=== PATIENT | female | born 1940 | race Caucasian/White ===

== ENCOUNTER → 2016-10-09 | Outpatient (CLI) | payer MEDICARE, BC ==
[~2016-10-09] MED LIST: ACET-1757 PO; ALPR0.25 PO; AMLO5TAB4 PO; AMOX1TAB64 PO; ASPI-515 PO; ATOR20TA9 PO; BISA10SU54 PR; CEFD300C2 PO; CIPR500T3 PO; CLOP75TA22 PO; ENOX40SY4 SQ; FURO-93 PO; FURO40TA6 PO; GABA300C10 PO; GABA600T2 PO; HYDR25TA6 PO; INSU100C5 SQ-INSULIN; INSU100I28 SC; INSU100V13 SC; LEVO25TA4 PO; LOSA100T6 PO; LOSA50TA6 PO; METF10002 PO; METO75TA PO; METR500T PO; NORT25CA PO; OMEP-110 PO; OMEP1CAP14 PO; ONDA4TAB10 PO; OXYC-302 PO; PRED10TA PO; SIMV10TA3 PO; SIMV20TA3 PO; SIMV40TA3 PO; VIT D
== END | disposition home or self-care (01) ==
LOC: CVU 08:54
PROVIDERS: ATTEND Internal Medicine Cardiovascular Disease
DX: I08.3 Combined rheumatic disorders of mitral, aortic and tricuspid valves (principal); I65.23 Occlusion and stenosis of bilateral carotid arteries; I31.3 Pericardial effusion (noninflammatory); I10 Essential (primary) hypertension; E11.9 Type 2 diabetes mellitus without complications; E03.9 Hypothyroidism, unspecified; E78.5 Hyperlipidemia, unspecified; Z95.0 Presence of cardiac pacemaker; Z86.73 Personal history of transient ischemic attack (TIA), and cerebral infarction without residual deficits
CPT/HCPCS: 93306; 93880

== ENCOUNTER 2016-11-13 13:30 | Inpatient (IN) | payer MEDICARE, BC ==
[~2016-11-13] VITALS: Ht 167.6 cm; Wt 97.3 kg
[~2016-11-13 13:30] MED LIST changes: -CEFD300C2 PO; +CEFD300C37 PO
[2016-11-13] MEDS ORDERED: SODIUM CHLORIDE FLUSH 10ML SYR IVF ONE (14:30)
[2016-11-13 14:56] LABS: ASPARTATE AMINO TRANSFERASE 40 U/L (15-37); BLOOD UREA NITROGEN 18 mg/dL (7-18)
[2016-11-13 15:02] LABS: IS PT STATUS REG ER OR PRE ER? YES
[2016-11-13] MEDS ORDERED: SODIUM CHLORIDE 0.9%, 500ML IVBOLUS ONE (15:30)
[2016-11-13] MEDS ORDERED: ONDANSETRON 2MG/ML, 2ML IVPush ONE (15:30)
[2016-11-13] MEDS ORDERED: morphine SULFATE 10 MG/ML, 1ML IVPush ONE (15:30)
[2016-11-13] MEDS ORDERED: OMNIPAQUE 350 MG/ML, 100ML BOTTLE ONE (18:18)
[2016-11-13] MEDS ORDERED: INSU100V13 INJ (18:37)
[2016-11-13] MEDS ORDERED: POLYETHYLENE GLYCOL 17 GM PACKET PO PRN (19:30)
[2016-11-13] MEDS ORDERED: ACETAMINOPHEN 325 MG TABLET PO PRN (19:30)
[2016-11-13] MEDS ORDERED: BISACODYL 10 MG SUPP PR PRN (19:30)
[2016-11-13] MEDS ORDERED: ONDANSETRON ODT 4 MG PO PRN (19:30)
[2016-11-13] MEDS ORDERED: CEFTRIAXONE 1,000 MG in SODIUM CHLORIDE 0.9% 50 ML IV SCH (19:30)
[2016-11-13 20:23] VITALS: BP 132/77
[2016-11-13] MEDS ORDERED: FUROSEMIDE 40 MG/4 ML IV ONE (20:30)
[2016-11-13] MEDS: SODIUM CHLORIDE FLUSH 3ML SYRINGE IVF SCH (21:00)
[2016-11-13] MEDS: CEFTRIAXONE 1,000 MG in SODIUM CHLORIDE 0.9% 50 ML IV SCH (21:24)
[2016-11-13] MEDS: HEPARIN 5,000 UNITS/ML, 1ML SQ SCH (21:25)
[2016-11-13] MEDS: GABAPENTIN 300 MG CAPSULE PO SCH (21:25)
[2016-11-13] MEDS: ATORVASTATIN 20 MG TABLET PO SCH (21:26)
[2016-11-13 21:42] VITALS: BP 136/77
[2016-11-13 21:50] LABS: IS PT STATUS REG ER OR PRE ER? NO
[2016-11-13] MEDS: INSULIN DETEMIR 100 UNITS/ML, PEN SQ-INSULIN SCH (22:04)
[2016-11-14 01:28] VITALS: BP 103/68
[2016-11-14 03:42] LABS: ASPARTATE AMINO TRANSFERASE 31 U/L (15-37); BLOOD UREA NITROGEN 16 mg/dL (7-18)
[2016-11-14 04:30] LABS: IS PT STATUS REG ER OR PRE ER? NO
[2016-11-14] MEDS: HEPARIN 5,000 UNITS/ML, 1ML SQ SCH ×3 (06:20→20:18)
[2016-11-14] MEDS: LEVOTHYROXINE 25 MCG TABLET PO SCH (06:20)
[2016-11-14 08:05] VITALS: BP 137/88
[2016-11-14] MEDS: SENNA/DOCUSATE TABLET PO SCH (09:00)
[2016-11-14] MEDS: CLOPIDOGREL 75 MG TABLET PO SCH (09:06)
[2016-11-14] MEDS: GABAPENTIN 300 MG CAPSULE PO SCH ×2 (09:06→20:20)
[2016-11-14] MEDS: SODIUM CHLORIDE FLUSH 3ML SYRINGE IVF SCH ×2 (09:06→20:18)
[2016-11-14] MEDS: POTASSIUM CHLORIDE 20 MEQ TAB.ER.PRT PO SCH ×2 (09:06→17:18)
[2016-11-14] MEDS: FUROSEMIDE 20 MG/2 ML IV SCH ×2 (09:06→17:18)
[2016-11-14] MEDS: GUAIFENESIN/DM 200-20MG, 10ML UDC PO PRN ×2 (11:49→20:19)
[2016-11-14 12:56] VITALS: BP 125/84
[2016-11-14] MEDS ORDERED: MAGNESIUM SULFATE PMX 4GM/100M 100 ML IV ONE (14:00)
[2016-11-14 20:16] VITALS: BP 106/72
[2016-11-14] MEDS: CEFTRIAXONE 1,000 MG in SODIUM CHLORIDE 0.9% 50 ML IV SCH (20:18)
[2016-11-14] MEDS: ATORVASTATIN 20 MG TABLET PO SCH (20:20)
[2016-11-14] MEDS: INSULIN DETEMIR 100 UNITS/ML, PEN SQ-INSULIN SCH (22:16)
[2016-11-15 02:37] VITALS: BP 131/77
[2016-11-15] MEDS: LEVOTHYROXINE 25 MCG TABLET PO SCH (05:13)
[2016-11-15] MEDS: HEPARIN 5,000 UNITS/ML, 1ML SQ SCH ×2 (05:13→16:21)
[2016-11-15 06:03] LABS: BLOOD UREA NITROGEN 22 mg/dL (7-18)
[2016-11-15 08:01] VITALS: BP 125/79
[2016-11-15] MEDS: SENNA/DOCUSATE TABLET PO SCH (08:04)
[2016-11-15] MEDS: GABAPENTIN 300 MG CAPSULE PO SCH ×2 (08:10→20:30)
[2016-11-15] MEDS: CLOPIDOGREL 75 MG TABLET PO SCH (08:10)
[2016-11-15] MEDS: SODIUM CHLORIDE FLUSH 3ML SYRINGE IVF SCH ×2 (08:10→20:29)
[2016-11-15] MEDS: FUROSEMIDE 20 MG/2 ML IV SCH (08:11)
[2016-11-15] MEDS: FUROSEMIDE 40 MG TABLET PO SCH (11:08)
[2016-11-15] MEDS: BENZONATATE 100 MG CAPSULE PO SCH ×3 (11:08→20:30)
[2016-11-15 13:15] VITALS: BP 126/75
[2016-11-15] MEDS: GUAIFENESIN ER 600 MG TABLET PO SCH ×2 (16:21→20:29)
[2016-11-15 19:05] VITALS: BP 139/85
[2016-11-15] MEDS: CEFDINIR 300 MG CAPSULE PO SCH (20:30)
[2016-11-15] MEDS: ATORVASTATIN 20 MG TABLET PO SCH (20:30)
[2016-11-15] MEDS: INSULIN DETEMIR 100 UNITS/ML, PEN SQ-INSULIN SCH (20:31)
[2016-11-16] MEDS: HEPARIN 5,000 UNITS/ML, 1ML SQ SCH ×2 (00:54→09:35)
[2016-11-16 00:56] VITALS: BP 104/65
[2016-11-16] MEDS: LEVOTHYROXINE 25 MCG TABLET PO SCH (06:26)
[2016-11-16 06:31] LABS: BLOOD UREA NITROGEN 21 mg/dL (7-18)
[2016-11-16 06:39] VITALS: BP 113/69
[2016-11-16] MEDS ORDERED: FUROSEMIDE 40 MG TABLET PO SCH (09:00)
[2016-11-16] MEDS: FUROSEMIDE 40 MG TABLET PO SCH (09:00)
[2016-11-16] MEDS: BENZONATATE 100 MG CAPSULE PO SCH (09:34)
[2016-11-16] MEDS: GUAIFENESIN ER 600 MG TABLET PO SCH (09:34)
[2016-11-16] MEDS: SENNA/DOCUSATE TABLET PO SCH (09:34)
[2016-11-16] MEDS: SODIUM CHLORIDE FLUSH 3ML SYRINGE IVF SCH (09:35)
[2016-11-16] MEDS: GABAPENTIN 300 MG CAPSULE PO SCH (09:35)
[2016-11-16] MEDS: CEFDINIR 300 MG CAPSULE PO SCH (09:35)
[2016-11-16] MEDS ORDERED: POTASSIUM CHLORIDE 10 MEQ TABLET.ER PO SCH (10:00)
[2016-11-16] MEDS: CLOPIDOGREL 75 MG TABLET PO SCH (10:39)
[2016-11-16] MEDS ORDERED: CEFD300C37 PO (11:24)
[2016-11-16] MEDS ORDERED: GUAI600T22 PO (11:24)
[2016-11-16] MEDS ORDERED: BENZ100C4 PO (11:24)
[2016-11-16] MEDS ORDERED: FURO40TA6 PO (11:24)
[2016-11-16] MEDS ORDERED: POTA10TA5 PO (11:24)
[2016-11-16 12:59] VITALS: BP 105/65
[2016-11-17] MEDS ORDERED: SENNA/DOCUSATE TABLET PO SCH (09:00)
== END 2016-11-16 18:16 | disposition home health service (06) | DRG 292 ==
LOC: ED 18:27 → EDIP 18:28 → ED 18:41 → 5SO 19:58 → 4WST 11-16 00:24
PROVIDERS: ADMIT Internal Medicine; ATTEND Internal Medicine
DX: I11.0 Hypertensive heart disease with heart failure (principal); I31.3 Pericardial effusion (noninflammatory); N39.0 Urinary tract infection, site not specified; I38 Endocarditis, valve unspecified; I50.33 Acute on chronic diastolic (congestive) heart failure; J40 Bronchitis, not specified as acute or chronic; R00.0 Tachycardia, unspecified; D72.829 Elevated white blood cell count, unspecified; E87.6 Hypokalemia; E11.40 Type 2 diabetes mellitus with diabetic neuropathy, unspecified; E78.5 Hyperlipidemia, unspecified; I27.2 Other secondary pulmonary hypertension; E03.9 Hypothyroidism, unspecified; R53.81 Other malaise; Z99.3 Dependence on wheelchair; Z79.4 Long term (current) use of insulin; Z86.73 Personal history of transient ischemic attack (TIA), and cerebral infarction without residual deficits; Z95.0 Presence of cardiac pacemaker; Z88.2 Allergy status to sulfonamides; Z88.1 Allergy status to other antibiotic agents; E78.00 Pure hypercholesterolemia, unspecified; I25.10 Atherosclerotic heart disease of native coronary artery without angina pectoris; Z83.3 Family history of diabetes mellitus; Z96.653 Presence of artificial knee joint, bilateral; I49.5 Sick sinus syndrome
CPT/HCPCS: 36415; 71010; 71275; 80048; 80053; 81001; 82962; 83036; 83735; 83880; 84484; 85025; 85379; 85610; 87086; 93005; 96360; J0696; J1644; J1940; Q0162; Q9967; J1815; J3475; J7040

== ENCOUNTER 2016-11-26 22:32 | Inpatient (IN) | payer MEDICARE, BC ==
[~2016-11-26] VITALS: Ht 167.6 cm; Wt 94.4 kg
[~2016-11-26 22:32] MED LIST changes: +BENZ100C4 PO; +GUAI600T22 PO; +INSU100V13 INJ; +POTA10TA5 PO
[2016-11-26] MEDS ORDERED: SODIUM CHLORIDE FLUSH 10ML SYR IVF ONE (23:30)
[2016-11-26 23:54] LABS: BLOOD UREA NITROGEN 19 mg/dL (7-18)
[2016-11-26 23:59] LABS: ASPARTATE AMINO TRANSFERASE 24 U/L (15-37)
[2016-11-27 00:01] LABS: IS PT STATUS REG ER OR PRE ER? YES
[2016-11-27] MEDS ORDERED: SODIUM CHLORIDE 0.9%, 500ML IVBOLUS ONE (00:30)
[2016-11-27 04:11] VITALS: BP 100/60
[2016-11-27 07:16] VITALS: BP 118/81
[2016-11-27] MEDS ORDERED: ONDANSETRON 2MG/ML, 2ML IVPush PRN (07:30)
[2016-11-27] MEDS: SODIUM CHLORIDE 0.9% 1,000 ML IV SCH ×2 (08:37→17:13)
[2016-11-27] MEDS: CEFTRIAXONE PMX 2GM/50ML 50 ML IVPB SCH (08:46)
[2016-11-27] MEDS: ENOXAPARIN 40 MG/0.4 ML SQ SCH (08:47)
[2016-11-27] MEDS: LEVOTHYROXINE 25 MCG TABLET PO SCH (08:47)
[2016-11-27] MEDS: CLOPIDOGREL 75 MG TABLET PO SCH (08:48)
[2016-11-27] MEDS: GABAPENTIN 300 MG CAPSULE PO SCH ×2 (08:48→20:43)
[2016-11-27] MEDS: GUAIFENESIN/DM 200-20MG, 10ML UDC PO SCH ×3 (09:59→20:44)
[2016-11-27] MEDS: DOXYCYCLINE 100 MG in DEXTROSE 5% 250 ML IV SCH (12:20)
[2016-11-27] MEDS: INSULIN ASPART 100 UNITS/ML, PEN SQ-INSULIN SCH ×3 (13:14→20:48)
[2016-11-27 13:24] VITALS: BP 112/76
[2016-11-27] MEDS: ACETAMINOPHEN 325 MG TABLET PO PRN (14:44)
[2016-11-27 19:38] VITALS: BP 111/72
[2016-11-27] MEDS: ATORVASTATIN 20 MG TABLET PO SCH (20:43)
[2016-11-27] MEDS: INSULIN DETEMIR 100 UNITS/ML, PEN SQ-INSULIN SCH (20:47)
[2016-11-28] MEDS: DOXYCYCLINE 100 MG in DEXTROSE 5% 250 ML IV SCH ×2 (00:02→11:24)
[2016-11-28 01:43] VITALS: BP 108/75
[2016-11-28] MEDS: SODIUM CHLORIDE 0.9% 1,000 ML IV SCH (02:31)
[2016-11-28] MEDS: GUAIFENESIN/DM 200-20MG, 10ML UDC PO SCH ×4 (02:31→20:31)
[2016-11-28] MEDS: LEVOTHYROXINE 25 MCG TABLET PO SCH (05:51)
[2016-11-28] MEDS: INSULIN ASPART 100 UNITS/ML, PEN SQ-INSULIN SCH ×4 (07:00→20:33)
[2016-11-28 07:01] LABS: BLOOD UREA NITROGEN 13 mg/dL (7-18)
[2016-11-28 07:15] VITALS: BP 118/80
[2016-11-28] MEDS: CEFTRIAXONE PMX 2GM/50ML 50 ML IVPB SCH (07:43)
[2016-11-28] MEDS: ENOXAPARIN 40 MG/0.4 ML SQ SCH (07:43)
[2016-11-28] MEDS: CLOPIDOGREL 75 MG TABLET PO SCH (07:44)
[2016-11-28] MEDS: GABAPENTIN 300 MG CAPSULE PO SCH ×2 (07:44→20:29)
[2016-11-28 12:35] VITALS: BP 131/78
[2016-11-28] MEDS ORDERED: CEFD300C37 PO (15:45)
[2016-11-28] MEDS ORDERED: DOXY50SY PO (15:45)
[2016-11-28] MEDS: ACETAMINOPHEN 325 MG TABLET PO PRN (16:23)
[2016-11-28] MEDS ORDERED: POLYETHYLENE GLYCOL 17 GM PACKET PO ONE (16:30)
[2016-11-28 19:38] VITALS: BP 102/70
[2016-11-28] MEDS: CEFDINIR 300 MG CAPSULE PO SCH (20:29)
[2016-11-28] MEDS: ATORVASTATIN 20 MG TABLET PO SCH (20:29)
[2016-11-28] MEDS: DOXYCYCLINE 50 MG/5 ML ORAL SUSP PO SCH (20:30)
[2016-11-28] MEDS: INSULIN DETEMIR 100 UNITS/ML, PEN SQ-INSULIN SCH (20:34)
[2016-11-29 02:01] VITALS: BP 113/80
[2016-11-29] MEDS: GUAIFENESIN/DM 200-20MG, 10ML UDC PO SCH ×2 (02:14→07:53)
[2016-11-29] MEDS: LEVOTHYROXINE 25 MCG TABLET PO SCH (05:26)
[2016-11-29 05:50] LABS: BLOOD UREA NITROGEN 15 mg/dL (7-18)
[2016-11-29] MEDS: INSULIN ASPART 100 UNITS/ML, PEN SQ-INSULIN SCH ×2 (07:00→11:26)
[2016-11-29] MEDS: ENOXAPARIN 40 MG/0.4 ML SQ SCH (07:53)
[2016-11-29] MEDS: CEFDINIR 300 MG CAPSULE PO SCH (07:54)
[2016-11-29] MEDS: GABAPENTIN 300 MG CAPSULE PO SCH (07:54)
[2016-11-29] MEDS: CLOPIDOGREL 75 MG TABLET PO SCH (07:54)
[2016-11-29] MEDS: DOXYCYCLINE 50 MG/5 ML ORAL SUSP PO SCH (07:55)
[2016-11-29 08:30] VITALS: BP 145/97
[2016-11-29] MEDS ORDERED: FUROSEMIDE 40 MG TABLET PO SCH (09:00)
[2016-11-29] MEDS ORDERED: GUAI5SYR PO (09:42)
[2016-11-29] MEDS: ACETAMINOPHEN 325 MG TABLET PO PRN (10:36)
== END 2016-11-29 14:36 | disposition home or self-care (01) | DRG 189 ==
LOC: ED 23:59 → EDIP 11-27 02:18 → 3NE 11-27 04:09
PROVIDERS: ADMIT Internal Medicine; ATTEND Internal Medicine
PROC: 0T9B70Z Drainage of Bladder with Drainage Device, Via Natural or Artificial Opening (ICD-10-PCS; principal; 2016-11-27)
DX: J96.01 Acute respiratory failure with hypoxia (principal); N39.0 Urinary tract infection, site not specified; I50.32 Chronic diastolic (congestive) heart failure; E03.9 Hypothyroidism, unspecified; E11.40 Type 2 diabetes mellitus with diabetic neuropathy, unspecified; E78.00 Pure hypercholesterolemia, unspecified; E78.5 Hyperlipidemia, unspecified; I08.1 Rheumatic disorders of both mitral and tricuspid valves; I11.0 Hypertensive heart disease with heart failure; I25.10 Atherosclerotic heart disease of native coronary artery without angina pectoris; H93.19 Tinnitus, unspecified ear; I27.2 Other secondary pulmonary hypertension; J40 Bronchitis, not specified as acute or chronic; Z66 Do not resuscitate; Z86.73 Personal history of transient ischemic attack (TIA), and cerebral infarction without residual deficits; Z95.0 Presence of cardiac pacemaker; Z79.4 Long term (current) use of insulin; Z96.653 Presence of artificial knee joint, bilateral; Z79.899 Other long term (current) drug therapy; Z88.2 Allergy status to sulfonamides; Z88.8 Allergy status to other drugs, medicaments and biological substances
CPT/HCPCS: 36415; 71010; 80048; 80053; 81001; 82962; 83735; 83880; 84145; 84484; 85025; 85610; 85730; 87040; 87086; 93005; 99285; J0696; J1650; J1815; J7060; J7030; J7040

== ENCOUNTER 2017-01-12 17:08 | Inpatient (IN) | payer MEDICARE, BC ==
[~2017-01-12] VITALS: Ht 167.6 cm; Wt 97.9 kg
[~2017-01-12 17:08] MED LIST changes: +DOXY50SY PO; +GUAI5SYR PO
[2017-01-12] MEDS ORDERED: CALC300T4 PO (17:50)
[2017-01-12] MEDS ORDERED: ASPI-515 PO (17:50)
[2017-01-12] MEDS ORDERED: POTA10TA31 PO (17:50)
[2017-01-12] MEDS ORDERED: SENN8.6T4 PO (17:50)
[2017-01-12] MEDS ORDERED: ACET1TAB52 PO (17:50)
[2017-01-12] MEDS ORDERED: CYAN200014 PO (17:50)
[2017-01-12] MEDS ORDERED: DOCU100C8 PO (17:50)
[2017-01-12] MEDS ORDERED: SODIUM CHLORIDE FLUSH 10ML SYR IVF ONE (18:00)
[2017-01-12] MEDS ORDERED: LATA2.5D2 EACHEYE (18:04)
[2017-01-12] MEDS ORDERED: FURO40TA6 PO (18:04)
[2017-01-12] MEDS ORDERED: GUAI473L20 PO (18:04)
[2017-01-12] MEDS ORDERED: OMEP-110 PO (18:04)
[2017-01-12] MEDS ORDERED: FLUT9.9S NAS (18:04)
[2017-01-12] MEDS ORDERED: SITA50TA PO (18:04)
[2017-01-12] MEDS ORDERED: GABA300C10 PO (18:04)
[2017-01-12] MEDS ORDERED: METOPROLOL 1 MG/ML, 5ML ONE (18:18)
[2017-01-12] MEDS ORDERED: PIPERACILLIN/TAZO/PMX 3.375GM 50 ML ONE (18:19)
[2017-01-12 18:24] LABS: ASPARTATE AMINO TRANSFERASE 19 U/L (15-37); BLOOD UREA NITROGEN 24 mg/dL (7-18)
[2017-01-12 18:28] LABS: IS PT STATUS REG ER OR PRE ER? YES
[2017-01-12] MEDS ORDERED: PIPERACILLIN/TAZO/PMX 3.375GM 50 ML IVPB ONE (18:30)
[2017-01-12] MEDS ORDERED: VANCOMYCIN PER PHARMACY IV ONE (18:30)
[2017-01-12] MEDS ORDERED: MAGNESIUM SULFATE PMX 2GM/50ML 50 ML IV ONE (18:30)
[2017-01-12] MEDS ORDERED: METOPROLOL 1 MG/ML, 5ML IVPush ONE (18:30)
[2017-01-12] MEDS ORDERED: VANCOMYCIN 1,800 MG in SODIUM CHLORIDE 0.9% 250 ML IV ONE (19:00)
[2017-01-12] MEDS ORDERED: PHARMACOKINETIC CONSULTATION MC ONE ×2 (19:00→21:00)
[2017-01-12] MEDS ORDERED: SODIUM CHLORIDE 0.9% 1,000 ML IV SCH (19:09)
[2017-01-12] MEDS ORDERED: ONDANSETRON 2MG/ML, 2ML IVPush PRN (19:30)
[2017-01-12] MEDS ORDERED: PIPERACILLIN/TAZO/PMX 3.375GM 50 ML IV SCH (19:30)
[2017-01-12] MEDS ORDERED: GUAIFENESIN/DM 200-20MG, 10ML UDC PO PRN (19:30)
[2017-01-12] MEDS ORDERED: VANCOMYCIN PER PHARMACY MC PRN (19:30)
[2017-01-12 20:40] VITALS: BP 105/71
[2017-01-12] MEDS ORDERED: VANCOMYCIN 1,400 MG in SODIUM CHLORIDE 0.9% 250 ML IV SCH (21:00)
[2017-01-12] MEDS ORDERED: PHARMACOKINETIC MONITORING MC PRN (21:00)
[2017-01-12] MEDS: HEPARIN 5,000 UNITS/ML, 1ML SQ SCH (21:55)
[2017-01-12] MEDS: ASPIRIN 81 MG TABLET EC PO SCH (21:55)
[2017-01-12] MEDS: GABAPENTIN 300 MG CAPSULE PO SCH (21:55)
[2017-01-12] MEDS: INSULIN DETEMIR 100 UNITS/ML, PEN SQ-INSULIN SCH (23:17)
[2017-01-12] MEDS: LATANOPROST OPHTH 0.005%, 2.5ML EACHEYE SCH (23:17)
[2017-01-13 01:18] VITALS: BP 99/67
[2017-01-13] MEDS: HEPARIN 5,000 UNITS/ML, 1ML SQ SCH ×3 (06:03→21:53)
[2017-01-13] MEDS: CEFTRIAXONE PMX 1GM/50ML 50 ML IV SCH (06:34)
[2017-01-13 06:44] LABS: ASPARTATE AMINO TRANSFERASE 18 U/L (15-37); BLOOD UREA NITROGEN 23 mg/dL (7-18)
[2017-01-13 07:30] VITALS: BP 112/78
[2017-01-13] MEDS ORDERED: PANTOPROZOLE 40MG TABLET PO SCH (07:30)
[2017-01-13] MEDS: AZITHROMYCIN 500 MG in SODIUM CHLORIDE 0.9% 250 ML IV SCH (09:02)
[2017-01-13] MEDS: CLOPIDOGREL 75 MG TABLET PO SCH (09:09)
[2017-01-13] MEDS: CYANOCOBALAMIN 1,000 MCG TABLET PO SCH (09:09)
[2017-01-13] MEDS: GABAPENTIN 300 MG CAPSULE PO SCH ×2 (09:09→21:52)
[2017-01-13] MEDS: OMEPRAZOLE 20 MG CAPSULE.DR PO SCH (09:09)
[2017-01-13] MEDS: LEVOTHYROXINE 25 MCG TABLET PO SCH (09:09)
[2017-01-13] MEDS: ATORVASTATIN 80 MG TABLET PO SCH (09:09)
[2017-01-13] MEDS: CALCIUM CARBONATE 500 MG TAB.CHEW PO SCH (09:10)
[2017-01-13] MEDS: DOCUSATE 100 MG CAPSULE PO SCH (09:10)
[2017-01-13] MEDS: SITAGLIPTIN 50MG TABLET PO SCH (09:10)
[2017-01-13] MEDS: FLUTICASONE NASAL SPRAY 16GM NAS SCH (11:29)
[2017-01-13] MEDS: ACETAMINOPHEN 325 MG TABLET PO PRN ×2 (11:29→21:53)
[2017-01-13 14:27] VITALS: BP 106/72
[2017-01-13 19:05] VITALS: BP 115/79
[2017-01-13] MEDS: LATANOPROST OPHTH 0.005%, 2.5ML EACHEYE SCH (21:51)
[2017-01-13] MEDS: ASPIRIN 81 MG TABLET EC PO SCH (21:51)
[2017-01-13] MEDS: INSULIN DETEMIR 100 UNITS/ML, PEN SQ-INSULIN SCH (21:52)
[2017-01-13] MEDS: GUAIFENESIN/DM 200-20MG, 10ML UDC PO PRN (21:53)
[2017-01-14 03:02] VITALS: BP 105/71
[2017-01-14] MEDS: HEPARIN 5,000 UNITS/ML, 1ML SQ SCH ×3 (05:58→21:36)
[2017-01-14] MEDS: CEFTRIAXONE PMX 1GM/50ML 50 ML IV SCH (05:58)
[2017-01-14 06:50] VITALS: BP 129/84
[2017-01-14] MEDS: GABAPENTIN 300 MG CAPSULE PO SCH ×2 (07:57→21:32)
[2017-01-14] MEDS: SITAGLIPTIN 50MG TABLET PO SCH (07:57)
[2017-01-14] MEDS: FLUTICASONE NASAL SPRAY 16GM NAS SCH (07:57)
[2017-01-14] MEDS: ATORVASTATIN 80 MG TABLET PO SCH (07:57)
[2017-01-14] MEDS: DOCUSATE 100 MG CAPSULE PO SCH (07:58)
[2017-01-14] MEDS: CLOPIDOGREL 75 MG TABLET PO SCH (07:58)
[2017-01-14] MEDS: CYANOCOBALAMIN 1,000 MCG TABLET PO SCH (07:58)
[2017-01-14] MEDS: CALCIUM CARBONATE 500 MG TAB.CHEW PO SCH (08:00)
[2017-01-14] MEDS: OMEPRAZOLE 20 MG CAPSULE.DR PO SCH (08:01)
[2017-01-14] MEDS: LEVOTHYROXINE 25 MCG TABLET PO SCH (08:01)
[2017-01-14] MEDS: AZITHROMYCIN 500 MG in SODIUM CHLORIDE 0.9% 250 ML IV SCH (08:23)
[2017-01-14] MEDS ORDERED: POTASSIUM CHLORIDE 20 MEQ TAB.ER.PRT PO ONE (10:00)
[2017-01-14 12:35] VITALS: BP 116/81
[2017-01-14] MEDS: GUAIFENESIN/DM 200-20MG, 10ML UDC PO PRN (14:23)
[2017-01-14] MEDS: ACETAMINOPHEN 325 MG TABLET PO PRN ×2 (17:45→22:41)
[2017-01-14] MEDS ORDERED: MOVIPREP POWDER 1 PREP KIT PO SCH (19:00)
[2017-01-14 20:07] VITALS: BP 143/86
[2017-01-14] MEDS: ASPIRIN 81 MG TABLET EC PO SCH (21:31)
[2017-01-14] MEDS: LATANOPROST OPHTH 0.005%, 2.5ML EACHEYE SCH (21:32)
[2017-01-14] MEDS: INSULIN DETEMIR 100 UNITS/ML, PEN SQ-INSULIN SCH (21:35)
[2017-01-15 02:00] VITALS: BP 105/83
[2017-01-15] MEDS: HEPARIN 5,000 UNITS/ML, 1ML SQ SCH ×3 (06:00→21:24)
[2017-01-15] MEDS: CEFTRIAXONE PMX 1GM/50ML 50 ML IV SCH (06:24)
[2017-01-15 06:40] LABS: ASPARTATE AMINO TRANSFERASE 433 U/L (15-37); BLOOD UREA NITROGEN 21 mg/dL (7-18)
[2017-01-15 07:43] VITALS: BP 112/79
[2017-01-15] MEDS: ATORVASTATIN 80 MG TABLET PO SCH (08:20)
[2017-01-15] MEDS: CLOPIDOGREL 75 MG TABLET PO SCH (08:21)
[2017-01-15] MEDS: GABAPENTIN 300 MG CAPSULE PO SCH ×2 (08:21→21:17)
[2017-01-15] MEDS: CALCIUM CARBONATE 500 MG TAB.CHEW PO SCH (08:22)
[2017-01-15] MEDS: SITAGLIPTIN 50MG TABLET PO SCH (08:23)
[2017-01-15] MEDS: LEVOTHYROXINE 25 MCG TABLET PO SCH (08:23)
[2017-01-15] MEDS: CYANOCOBALAMIN 1,000 MCG TABLET PO SCH (08:23)
[2017-01-15] MEDS: FLUTICASONE NASAL SPRAY 16GM NAS SCH (08:24)
[2017-01-15] MEDS: OMEPRAZOLE 20 MG CAPSULE.DR PO SCH (08:24)
[2017-01-15] MEDS: DOCUSATE 100 MG CAPSULE PO SCH (09:00)
[2017-01-15] MEDS: AZITHROMYCIN 500 MG in SODIUM CHLORIDE 0.9% 250 ML IV SCH (09:42)
[2017-01-15 14:03] VITALS: BP 106/76
[2017-01-15] MEDS: DOCUSATE 50 MG/5 ML, 10ML UDC PO SCH (15:27)
[2017-01-15 20:00] VITALS: BP 120/81
[2017-01-15] MEDS ORDERED: INSULIN DETEMIR 100 UNITS/ML, PEN SQ-INSULIN SCH (21:00)
[2017-01-15] MEDS: LATANOPROST OPHTH 0.005%, 2.5ML EACHEYE SCH (21:16)
[2017-01-15] MEDS: ASPIRIN 81 MG TABLET EC PO SCH (21:16)
[2017-01-15] MEDS: GUAIFENESIN/DM 200-20MG, 10ML UDC PO PRN (21:17)
[2017-01-16 02:00] VITALS: BP 118/83
[2017-01-16] MEDS: CEFTRIAXONE PMX 1GM/50ML 50 ML IV SCH (05:19)
[2017-01-16] MEDS: HEPARIN 5,000 UNITS/ML, 1ML SQ SCH ×3 (05:19→21:26)
[2017-01-16 06:29] LABS: ASPARTATE AMINO TRANSFERASE 1241 U/L (15-37); BLOOD UREA NITROGEN 28 mg/dL (7-18)
[2017-01-16 07:39] VITALS: BP 134/89
[2017-01-16] MEDS: OMEPRAZOLE 20 MG CAPSULE.DR PO SCH (09:08)
[2017-01-16] MEDS: AZITHROMYCIN 500 MG in SODIUM CHLORIDE 0.9% 250 ML IV SCH (09:09)
[2017-01-16] MEDS: ATORVASTATIN 80 MG TABLET PO SCH (09:09)
[2017-01-16] MEDS: FLUTICASONE NASAL SPRAY 16GM NAS SCH (09:09)
[2017-01-16] MEDS: GABAPENTIN 300 MG CAPSULE PO SCH ×2 (09:09→21:25)
[2017-01-16] MEDS: SITAGLIPTIN 50MG TABLET PO SCH (09:09)
[2017-01-16] MEDS: LEVOTHYROXINE 25 MCG TABLET PO SCH (09:10)
[2017-01-16] MEDS: CLOPIDOGREL 75 MG TABLET PO SCH (09:10)
[2017-01-16] MEDS: CYANOCOBALAMIN 1,000 MCG TABLET PO SCH (09:11)
[2017-01-16] MEDS: CALCIUM CARBONATE 500 MG TAB.CHEW PO SCH (09:11)
[2017-01-16 12:20] LABS: HEPATITIS C VIRUS ANTIBODY Nonreactive (Nonreactive)
[2017-01-16 12:40] VITALS: BP 100/71
[2017-01-16 18:28] VITALS: BP 104/68
[2017-01-16] MEDS: ASPIRIN 81 MG TABLET EC PO SCH (21:25)
[2017-01-16] MEDS: LATANOPROST OPHTH 0.005%, 2.5ML EACHEYE SCH (21:25)
[2017-01-16] MEDS: INSULIN DETEMIR 100 UNITS/ML, PEN SQ-INSULIN SCH (21:26)
[2017-01-16] MEDS: GUAIFENESIN/DM 200-20MG, 10ML UDC PO PRN (21:26)
[2017-01-16] MEDS: ACETAMINOPHEN 325 MG TABLET PO PRN (23:17)
[2017-01-17 01:37] VITALS: BP 114/70
[2017-01-17 05:09] LABS: ASPARTATE AMINO TRANSFERASE 721 U/L (15-37); BLOOD UREA NITROGEN 26 mg/dL (7-18)
[2017-01-17] MEDS: CEFTRIAXONE PMX 1GM/50ML 50 ML IV SCH (05:21)
[2017-01-17] MEDS: HEPARIN 5,000 UNITS/ML, 1ML SQ SCH ×3 (05:21→17:30)
[2017-01-17 07:07] VITALS: BP 120/87
[2017-01-17] MEDS: OMEPRAZOLE 20 MG CAPSULE.DR PO SCH (09:54)
[2017-01-17] MEDS: SITAGLIPTIN 50MG TABLET PO SCH (09:55)
[2017-01-17] MEDS: DOCUSATE 50 MG/5 ML, 10ML UDC PO SCH (09:55)
[2017-01-17] MEDS: FLUTICASONE NASAL SPRAY 16GM NAS SCH (09:55)
[2017-01-17] MEDS: GABAPENTIN 300 MG CAPSULE PO SCH ×2 (09:55→21:02)
[2017-01-17] MEDS: CALCIUM CARBONATE 500 MG TAB.CHEW PO SCH (09:56)
[2017-01-17] MEDS: LEVOTHYROXINE 25 MCG TABLET PO SCH (09:56)
[2017-01-17] MEDS: CLOPIDOGREL 75 MG TABLET PO SCH (09:56)
[2017-01-17] MEDS: CYANOCOBALAMIN 1,000 MCG TABLET PO SCH (09:56)
[2017-01-17 12:42] VITALS: BP 121/87
[2017-01-17] MEDS: GUAIFENESIN/DM 200-20MG, 10ML UDC PO PRN (17:31)
[2017-01-17] MEDS: ASPIRIN 81 MG TABLET EC PO SCH (21:01)
[2017-01-17] MEDS: INSULIN DETEMIR 100 UNITS/ML, PEN SQ-INSULIN SCH (21:02)
[2017-01-17] MEDS: LATANOPROST OPHTH 0.005%, 2.5ML EACHEYE SCH (21:02)
[2017-01-17 21:07] VITALS: BP 133/87
[2017-01-18] MEDS: HEPARIN 5,000 UNITS/ML, 1ML SQ SCH ×3 (01:43→20:15)
[2017-01-18 02:00] VITALS: BP 127/87
[2017-01-18 05:48] LABS: ASPARTATE AMINO TRANSFERASE 335 U/L (15-37); BLOOD UREA NITROGEN 19 mg/dL (7-18)
[2017-01-18] MEDS: CEFTRIAXONE PMX 1GM/50ML 50 ML IV SCH (05:50)
[2017-01-18] MEDS: ACETAMINOPHEN 325 MG TABLET PO PRN (06:05)
[2017-01-18 06:34] VITALS: BP 106/72
[2017-01-18] MEDS: DOCUSATE 50 MG/5 ML, 10ML UDC PO SCH ×2 (09:00→18:19)
[2017-01-18] MEDS: CYANOCOBALAMIN 1,000 MCG TABLET PO SCH (09:00)
[2017-01-18] MEDS: FLUTICASONE NASAL SPRAY 16GM NAS SCH (09:29)
[2017-01-18] MEDS: OMEPRAZOLE 20 MG CAPSULE.DR PO SCH (09:29)
[2017-01-18] MEDS: GABAPENTIN 300 MG CAPSULE PO SCH ×2 (09:30→20:14)
[2017-01-18] MEDS: CALCIUM CARBONATE 500 MG TAB.CHEW PO SCH (09:30)
[2017-01-18] MEDS: SITAGLIPTIN 50MG TABLET PO SCH (09:30)
[2017-01-18] MEDS: CLOPIDOGREL 75 MG TABLET PO SCH (09:30)
[2017-01-18] MEDS: LEVOTHYROXINE 25 MCG TABLET PO SCH (09:30)
[2017-01-18 12:09] VITALS: BP 120/84
[2017-01-18] MEDS ORDERED: INSU100V13 INJ (15:10)
[2017-01-18] MEDS: ASPIRIN 81 MG TABLET EC PO SCH (20:14)
[2017-01-18] MEDS: LATANOPROST OPHTH 0.005%, 2.5ML EACHEYE SCH (20:14)
[2017-01-18] MEDS: INSULIN DETEMIR 100 UNITS/ML, PEN SQ-INSULIN SCH (20:15)
[2017-01-18 20:39] VITALS: BP 150/94
[2017-01-19 00:50] VITALS: BP 130/84
[2017-01-19 05:28] LABS: BLOOD UREA NITROGEN 15 mg/dL (7-18)
[2017-01-19 05:31] LABS: ASPARTATE AMINO TRANSFERASE 170 U/L (15-37)
[2017-01-19] MEDS: CEFTRIAXONE PMX 1GM/50ML 50 ML IV SCH (05:47)
[2017-01-19] MEDS: HEPARIN 5,000 UNITS/ML, 1ML SQ SCH ×2 (05:48→13:24)
[2017-01-19 07:13] VITALS: BP 141/91
[2017-01-19] MEDS: FLUTICASONE NASAL SPRAY 16GM NAS SCH (08:51)
[2017-01-19] MEDS: CYANOCOBALAMIN 1,000 MCG TABLET PO SCH (08:51)
[2017-01-19] MEDS: SITAGLIPTIN 50MG TABLET PO SCH (08:51)
[2017-01-19] MEDS: OMEPRAZOLE 20 MG CAPSULE.DR PO SCH (08:51)
[2017-01-19] MEDS: DOCUSATE 50 MG/5 ML, 10ML UDC PO SCH (08:51)
[2017-01-19] MEDS: CALCIUM CARBONATE 500 MG TAB.CHEW PO SCH (08:51)
[2017-01-19] MEDS: CLOPIDOGREL 75 MG TABLET PO SCH (08:52)
[2017-01-19] MEDS: GABAPENTIN 300 MG CAPSULE PO SCH (08:52)
[2017-01-19] MEDS: LEVOTHYROXINE 25 MCG TABLET PO SCH (08:52)
[2017-01-19 12:10] VITALS: BP 138/93
[2017-01-19] MEDS ORDERED: BISACODYL 10 MG SUPP PR PRN (12:30)
[2017-01-19] MEDS: GUAIFENESIN/DM 200-20MG, 10ML UDC PO PRN (12:36)
[2017-01-21 16:11] LABS: ANA SCREEN POSITIVE (Negative)
== END 2017-01-19 14:25 | disposition home health service (06) | DRG 871 ==
LOC: ED 18:03 → EDIP 18:40 → 4WST 20:16
PROVIDERS: ADMIT Hospitalist; ATTEND Internal Medicine
DX: A41.9 Sepsis, unspecified organism (principal); J18.9 Pneumonia, unspecified organism; N17.9 Acute kidney failure, unspecified; B17.9 Acute viral hepatitis, unspecified; I50.42 Chronic combined systolic (congestive) and diastolic (congestive) heart failure; R65.20 Severe sepsis without septic shock; D64.9 Anemia, unspecified; E03.9 Hypothyroidism, unspecified; E11.40 Type 2 diabetes mellitus with diabetic neuropathy, unspecified; E66.9 Obesity, unspecified; E78.00 Pure hypercholesterolemia, unspecified; E78.5 Hyperlipidemia, unspecified; E83.42 Hypomagnesemia; I11.0 Hypertensive heart disease with heart failure; I27.2 Other secondary pulmonary hypertension; R09.02 Hypoxemia; Z79.4 Long term (current) use of insulin; Z82.49 Family history of ischemic heart disease and other diseases of the circulatory system; Z83.3 Family history of diabetes mellitus; Z86.73 Personal history of transient ischemic attack (TIA), and cerebral infarction without residual deficits; Z87.01 Personal history of pneumonia (recurrent); Z87.440 Personal history of urinary (tract) infections; Z95.0 Presence of cardiac pacemaker; Z96.653 Presence of artificial knee joint, bilateral; Z90.49 Acquired absence of other specified parts of digestive tract; Z88.2 Allergy status to sulfonamides; Z68.34 Body mass index [BMI] 34.0-34.9, adult
CPT/HCPCS: 36415; 71010; 76700; 80053; 80074; 80307; 81003; 82390; 82962; 83605; 83735; 83880; 84100; 84145; 84436; 84443; 84484; 85025; 85610; 86038; 86039; 87040; 93005; 93306; 96365; 96366; 96375; J0456; J0696; J1644; J2405; J2543; J3370; J1815; J3475; J7030; J7050

== ENCOUNTER 2017-02-02 13:20 | Emergency (ER) | payer MEDICARE, BC ==
[~2017-02-02] VITALS: Ht 167.6 cm; Wt 90.9 kg
[~2017-02-02 13:20] MED LIST changes: +ACET1TAB52 PO; +CALC300T4 PO; +CYAN200014 PO; +DOCU100C8 PO; +FLUT9.9S NAS; +GUAI473L20 PO; +LATA2.5D2 EACHEYE; +POTA10TA31 PO; +SENN8.6T4 PO; +SITA50TA PO
[2017-02-02] MEDS ORDERED: ONDANSETRON 2MG/ML, 2ML ONE (14:12)
[2017-02-02 14:27] LABS: HEMATOCRIT 42.9 % (34.6-47.8); HEMOGLOBIN 13.7 g/dL (11.7-16.4); WHITE BLOOD COUNT 8.8 x10^3/uL (3.4-10)
[2017-02-02] MEDS ORDERED: SODIUM CHLORIDE 0.9% 1,000ML IVBOLUS ONE (14:30)
[2017-02-02] MEDS ORDERED: ONDANSETRON 2MG/ML, 2ML IVPush ONE (14:30)
[2017-02-02] MEDS ORDERED: SODIUM CHLORIDE FLUSH 10ML SYR IVF ONE (14:30)
[2017-02-02 14:33] LABS: ASPARTATE AMINO TRANSFERASE 29 U/L (15-37); BLOOD UREA NITROGEN 21 mg/dL (7-18)
[2017-02-02 14:35] LABS: IS PT STATUS REG ER OR PRE ER? YES
[2017-02-02 15:47] VITALS: BP 120/70
== END 2017-02-02 17:02 | disposition home or self-care (01) ==
LOC: ED 14:03
DX: K52.9 Noninfective gastroenteritis and colitis, unspecified (principal); E03.9 Hypothyroidism, unspecified; I11.0 Hypertensive heart disease with heart failure; I50.9 Heart failure, unspecified; E78.00 Pure hypercholesterolemia, unspecified; E11.40 Type 2 diabetes mellitus with diabetic neuropathy, unspecified; E78.5 Hyperlipidemia, unspecified; Z86.73 Personal history of transient ischemic attack (TIA), and cerebral infarction without residual deficits
CPT/HCPCS: 36415; 71010; 74020; 80053; 81003; 83690; 83880; 84484; 85025; 85610; 93005; 96361; 96374; 99285; J2405; J7030

== ENCOUNTER → 2017-02-07 | Outpatient (CLI) | payer MEDICARE, BC ==
[~2017-02-07] MED LIST changes: +OMNIPAQUE 350 MG/ML, 100ML BOTTLE ONE
== END | disposition home or self-care (01) ==
LOC: CFH 11:48
PROVIDERS: ATTEND Surgery
DX: I65.23 Occlusion and stenosis of bilateral carotid arteries (principal)
CPT/HCPCS: 70496; 70498; Q9967

== ENCOUNTER 2017-03-22 17:16 | Inpatient (IN) | payer MEDICARE, BC ==
[~2017-03-22] VITALS: Ht 167.6 cm; Wt 94.2 kg
[~2017-03-22 17:16] MED LIST changes: +BENZ100C17 PO; -BENZ100C4 PO; -CLOP75TA22 PO; +CLOP75TA52 PO; +DOCU100C33 PO; -DOCU100C8 PO; -GUAI600T22 PO; +GUAI600T31 PO; -OMNIPAQUE 350 MG/ML, 100ML BOTTLE ONE; +SENN-87 PO; -SENN8.6T4 PO
[2017-03-22] MEDS ORDERED: FUROSEMIDE 40 MG/4 ML IVP ONE (18:00)
[2017-03-22] MEDS ORDERED: ONDANSETRON 2MG/ML, 2ML IVP ONE (18:00)
[2017-03-22] MEDS ORDERED: MORPHINE SULFATE 4 MG/ML, 1ML IVPush PRN (18:00)
[2017-03-22] MEDS ORDERED: MORPHINE SULFATE 4 MG/ML, 1ML ONE (18:07)
[2017-03-22] MEDS ORDERED: ONDANSETRON 2MG/ML, 2ML ONE (18:08)
[2017-03-22] MEDS ORDERED: FUROSEMIDE 40 MG/4 ML ONE (18:08)
[2017-03-22 18:18] LABS: HEMATOCRIT 37.9 % (34.6-47.8); WHITE BLOOD COUNT 13.8 x10^3/uL (3.4-10)
[2017-03-22 18:21] LABS: ASPARTATE AMINO TRANSFERASE 15 U/L (15-37); BLOOD UREA NITROGEN 19 mg/dL (7-18)
[2017-03-22 18:29] LABS: IS PT STATUS REG ER OR PRE ER? YES
[2017-03-22] MEDS ORDERED: SODIUM CHLORIDE FLUSH 10ML SYR IVF ONE (19:00)
[2017-03-22] MEDS ORDERED: OMNIPAQUE 350 MG/ML, 100ML BOTTLE ONE ×2 (19:05→19:15)
[2017-03-22] MEDS ORDERED: ONDANSETRON 2MG/ML, 2ML IV PRN (19:30)
[2017-03-22] MEDS: LATANOPROST OPHTH 0.005%, 2.5ML EACHEYE SCH (21:00)
[2017-03-22 21:12] VITALS: BP 109/77
[2017-03-22] MEDS: ASPIRIN 81 MG TABLET EC PO SCH (22:34)
[2017-03-22] MEDS: GABAPENTIN 300 MG CAPSULE PO SCH (22:35)
[2017-03-22] MEDS: INSULIN ASPART 100 UNITS/ML, PEN SQ-INSULIN SCH (23:04)
[2017-03-23 00:27] LABS: IS PT STATUS REG ER OR PRE ER? NO
[2017-03-23 01:57] VITALS: BP 114/76
[2017-03-23 05:59] LABS: BLOOD UREA NITROGEN 18 mg/dL (7-18)
[2017-03-23 06:06] LABS: IS PT STATUS REG ER OR PRE ER? NO
[2017-03-23 06:51] VITALS: BP 110/76
[2017-03-23 07:46] VITALS: BP 113/80
[2017-03-23] MEDS: INSULIN ASPART 100 UNITS/ML, PEN SQ-INSULIN SCH ×4 (07:50→21:13)
[2017-03-23] MEDS: CLOPIDOGREL 75 MG TABLET PO SCH (07:51)
[2017-03-23] MEDS: FUROSEMIDE 20 MG/2 ML IVPush SCH ×2 (07:51→16:17)
[2017-03-23] MEDS: LEVOTHYROXINE 25 MCG TABLET PO SCH (07:52)
[2017-03-23] MEDS: OMEPRAZOLE 20 MG CAPSULE.DR PO SCH (07:52)
[2017-03-23] MEDS: GABAPENTIN 300 MG CAPSULE PO SCH ×2 (07:52→21:13)
[2017-03-23] MEDS: SPIRONOLACTONE 25 MG TABLET PO SCH (07:52)
[2017-03-23] MEDS: HEPARIN 5,000 UNITS/ML, 1ML SQ SCH ×2 (12:19→21:12)
[2017-03-23 12:55] VITALS: BP 99/69
[2017-03-23 16:17] VITALS: BP 109/67
[2017-03-23] MEDS: LATANOPROST OPHTH 0.005%, 2.5ML EACHEYE SCH (21:12)
[2017-03-23] MEDS: ASPIRIN 81 MG TABLET EC PO SCH (21:12)
[2017-03-23 21:16] VITALS: BP 114/71
[2017-03-24] MEDS ORDERED: ACETAMINOPHEN 325 MG TABLET ONE ×3 (02:06→13:14)
[2017-03-24 02:10] VITALS: BP 119/83
[2017-03-24] MEDS: ACETAMINOPHEN 650 MG/20.3 ML UDC PO PRN ×3 (02:10→13:20)
[2017-03-24] MEDS: HEPARIN 5,000 UNITS/ML, 1ML SQ SCH ×3 (04:30→20:07)
[2017-03-24 06:35] LABS: BLOOD UREA NITROGEN 25 mg/dL (7-18)
[2017-03-24] MEDS: FUROSEMIDE 20 MG/2 ML IVPush SCH (07:30)
[2017-03-24 07:41] VITALS: BP 94/63
[2017-03-24] MEDS: OMEPRAZOLE 20 MG CAPSULE.DR PO SCH (07:53)
[2017-03-24] MEDS: INSULIN ASPART 100 UNITS/ML, PEN SQ-INSULIN SCH ×4 (07:54→20:08)
[2017-03-24] MEDS: LEVOTHYROXINE 25 MCG TABLET PO SCH (07:54)
[2017-03-24] MEDS: SPIRONOLACTONE 25 MG TABLET PO SCH (09:00)
[2017-03-24 09:04] VITALS: BP 96/68
[2017-03-24] MEDS: CLOPIDOGREL 75 MG TABLET PO SCH (09:47)
[2017-03-24] MEDS: GABAPENTIN 300 MG CAPSULE PO SCH ×2 (09:47→20:08)
[2017-03-24 12:57] VITALS: BP 109/75
[2017-03-24] MEDS: FUROSEMIDE 40 MG TABLET PO SCH (13:09)
[2017-03-24] MEDS ORDERED: MAGNESIUM SULFATE PMX 2GM/50ML 50 ML IV ONE (17:00)
[2017-03-24] MEDS: ASPIRIN 81 MG TABLET EC PO SCH (20:07)
[2017-03-24] MEDS: MAGNESIUM OXIDE 400 MG TABLET PO SCH (20:07)
[2017-03-24] MEDS: LATANOPROST OPHTH 0.005%, 2.5ML EACHEYE SCH (20:07)
[2017-03-24 20:13] VITALS: BP 113/79
[2017-03-25 01:47] VITALS: BP 118/82
[2017-03-25] MEDS: LEVOTHYROXINE 25 MCG TABLET PO SCH (04:12)
[2017-03-25] MEDS: HEPARIN 5,000 UNITS/ML, 1ML SQ SCH ×3 (04:13→21:17)
[2017-03-25 05:18] LABS: BLOOD UREA NITROGEN 23 mg/dL (7-18)
[2017-03-25 07:53] VITALS: BP 103/72
[2017-03-25] MEDS ORDERED: ACETAMINOPHEN 325 MG TABLET ONE ×2 (07:57→21:21)
[2017-03-25] MEDS: OMEPRAZOLE 20 MG CAPSULE.DR PO SCH (08:00)
[2017-03-25] MEDS: INSULIN ASPART 100 UNITS/ML, PEN SQ-INSULIN SCH ×4 (08:01→21:17)
[2017-03-25] MEDS: ACETAMINOPHEN 650 MG/20.3 ML UDC PO PRN (08:01)
[2017-03-25] MEDS: MAGNESIUM OXIDE 400 MG TABLET PO SCH ×2 (08:56→21:17)
[2017-03-25] MEDS: CLOPIDOGREL 75 MG TABLET PO SCH (08:57)
[2017-03-25] MEDS: FUROSEMIDE 40 MG TABLET PO SCH (08:57)
[2017-03-25] MEDS: GABAPENTIN 300 MG CAPSULE PO SCH ×2 (08:57→21:18)
[2017-03-25 13:52] VITALS: BP 107/74
[2017-03-25 19:10] VITALS: BP 136/84
[2017-03-25] MEDS: LATANOPROST OPHTH 0.005%, 2.5ML EACHEYE SCH (21:18)
[2017-03-25] MEDS: ASPIRIN 81 MG TABLET EC PO SCH (21:18)
[2017-03-26 00:29] VITALS: BP 137/83
[2017-03-26] MEDS: LEVOTHYROXINE 25 MCG TABLET PO SCH (05:23)
[2017-03-26] MEDS: ACETAMINOPHEN 650 MG/20.3 ML UDC PO PRN (05:23)
[2017-03-26] MEDS: HEPARIN 5,000 UNITS/ML, 1ML SQ SCH ×2 (05:24→12:30)
[2017-03-26 08:04] VITALS: BP 117/78
[2017-03-26] MEDS: FUROSEMIDE 40 MG TABLET PO SCH (08:21)
[2017-03-26] MEDS: CLOPIDOGREL 75 MG TABLET PO SCH (08:21)
[2017-03-26] MEDS: MAGNESIUM OXIDE 400 MG TABLET PO SCH (08:21)
[2017-03-26] MEDS: OMEPRAZOLE 20 MG CAPSULE.DR PO SCH (08:21)
[2017-03-26] MEDS: GABAPENTIN 300 MG CAPSULE PO SCH (08:21)
[2017-03-26] MEDS: INSULIN ASPART 100 UNITS/ML, PEN SQ-INSULIN SCH ×2 (08:22→12:42)
[2017-03-26] MEDS ORDERED: MAGN400T26 PO (09:31)
[2017-03-26] MEDS ORDERED: INSU100V13 INJ (09:31)
[2017-03-26] MEDS ORDERED: SIMV10TA PO (10:16)
[2017-03-26] MEDS ORDERED: INSU100V13 SQ (10:39)
== END 2017-03-26 15:06 | disposition home or self-care (01) | DRG 291 ==
LOC: ED 18:29 → EDIP 19:21 → 5SO 21:01 → DCLOUNGE 03-26 14:39
PROVIDERS: ADMIT Internal Medicine; ATTEND Internal Medicine
DX: I13.0 Hypertensive heart and chronic kidney disease with heart failure and stage 1 through stage 4 chronic kidney disease, or unspecified chronic kidney disease (principal); I50.43 Acute on chronic combined systolic (congestive) and diastolic (congestive) heart failure; J96.01 Acute respiratory failure with hypoxia; N17.9 Acute kidney failure, unspecified; E11.21 Type 2 diabetes mellitus with diabetic nephropathy; E83.42 Hypomagnesemia; I08.3 Combined rheumatic disorders of mitral, aortic and tricuspid valves; E11.40 Type 2 diabetes mellitus with diabetic neuropathy, unspecified; E03.9 Hypothyroidism, unspecified; E11.22 Type 2 diabetes mellitus with diabetic chronic kidney disease; Z96.653 Presence of artificial knee joint, bilateral; E78.00 Pure hypercholesterolemia, unspecified; E78.5 Hyperlipidemia, unspecified; N18.9 Chronic kidney disease, unspecified; Z79.4 Long term (current) use of insulin; Z82.49 Family history of ischemic heart disease and other diseases of the circulatory system; Z83.3 Family history of diabetes mellitus; Z86.73 Personal history of transient ischemic attack (TIA), and cerebral infarction without residual deficits; Z95.0 Presence of cardiac pacemaker; Z90.49 Acquired absence of other specified parts of digestive tract; Z88.2 Allergy status to sulfonamides; R59.0 Localized enlarged lymph nodes
CPT/HCPCS: 36415; 71275; 80048; 80053; 81003; 82962; 83036; 83605; 83735; 83880; 84100; 84443; 84484; 85025; 87040; 93005; 93306; 96374; 96375; J1644; J1815; J1940; J2405; Q9967; J3475

== ENCOUNTER 2017-06-15 15:54 | Inpatient (IN) | payer MEDICARE, BC ==
[~2017-06-15] VITALS: Ht 167.6 cm; Wt 99.0 kg
[~2017-06-15 15:54] MED LIST changes: +BENZ-17 PO; -BENZ100C17 PO; +INSU100V13 SQ; +MAGN400T26 PO; +SIMV10TA PO
[2017-06-15 16:58] LABS: PH, VENOUS 7.427 pH (7.320-7.420)
[2017-06-15] MEDS: SODIUM CHLORIDE 0.9% 1,000ML IVBOLUS ONE ×2 (17:00→17:14)
[2017-06-15 17:03] LABS: HEMATOCRIT 41.2 % (34.6-47.8); HEMOGLOBIN 13.5 g/dL (11.7-16.4); WHITE BLOOD COUNT 17.5 x10^3/uL (3.4-10)
[2017-06-15 17:10] LABS: ASPARTATE AMINO TRANSFERASE 17 U/L (15-37); BLOOD UREA NITROGEN 27 mg/dL (7-18)
[2017-06-15] MEDS ORDERED: CEFTRIAXONE PMX 1GM/50ML 50 ML ONE (17:47)
[2017-06-15] MEDS ORDERED: CEFTRIAXONE PMX 1GM/50ML 50 ML IVPB ONE (18:00)
[2017-06-15] MEDS ORDERED: SODIUM CHLORIDE 0.9% 1,000ML IVBOLUS ONE (18:00)
[2017-06-15] MEDS ORDERED: FURO-92 PO (18:21)
[2017-06-15] MEDS ORDERED: POTA10TA31 PO (18:21)
[2017-06-15] MEDS ORDERED: ACET1TAB52 PO (18:25)
[2017-06-15] MEDS ORDERED: NORT25CA3 PO (18:25)
[2017-06-15] MEDS ORDERED: SPIR25TA3 PO (18:25)
[2017-06-15] MEDS ORDERED: GABA300C10 PO (18:25)
[2017-06-15 18:31] LABS: RAPID INFLUENZA A Negative (Negative); RAPID INFLUENZA B Negative (Negative)
[2017-06-15] MEDS ORDERED: DIPHENHYDRAMINE 25 MG CAPSULE PO PRN ×2 (19:00→19:30)
[2017-06-15] MEDS ORDERED: hydrALAzine 20 MG/ML, 1ML IVPush PRN (19:00)
[2017-06-15] MEDS ORDERED: GUAIFENESIN/DM 200-20MG, 10ML UDC PO PRN (19:00)
[2017-06-15] MEDS ORDERED: ACETAMINOPHEN 325 MG TABLET PO PRN ×2 (19:00)
[2017-06-15] MEDS ORDERED: DOCUSATE 100 MG CAPSULE PO PRN (19:00)
[2017-06-15] MEDS: SODIUM CHLORIDE 0.9% 1,000 ML IV SCH (19:32)
[2017-06-15 19:57] VITALS: BP 92/62
[2017-06-15] MEDS ORDERED: GLUCAGON 1 MG IM PRN (20:00)
[2017-06-15] MEDS ORDERED: INSULIN DETEMIR 100 UNITS/ML, PEN SQ-INSULIN SCH ×2 (20:00→21:00)
[2017-06-15] MEDS ORDERED: DEXTROSE 50%, 50ML SYRINGE IVPush PRN (20:00)
[2017-06-15] MEDS ORDERED: DEXTROSE 4 GM TAB.CHEW PO PRN (20:00)
[2017-06-15] MEDS ORDERED: SPIRONOLACTONE 25 MG TABLET PO SCH (21:00)
[2017-06-15] MEDS: INSULIN ASPART 100 UNITS/ML, PEN SQ-INSULIN SCH (21:46)
[2017-06-15] MEDS: HEPARIN 5,000 UNITS/ML, 1ML SQ SCH (21:47)
[2017-06-15] MEDS: OMEPRAZOLE 20 MG CAPSULE.DR PO SCH (21:47)
[2017-06-15] MEDS: FLUTICASONE NASAL SPRAY 16GM NAS SCH (21:48)
[2017-06-15] MEDS: LATANOPROST OPHTH 0.005%, 2.5ML EACHEYE SCH (21:49)
[2017-06-15] MEDS: SODIUM CHLORIDE FLUSH 10ML SYR IVF SCH (21:50)
[2017-06-15] MEDS: MAGNESIUM OXIDE 400 MG TABLET PO SCH (21:50)
[2017-06-15] MEDS: ASPIRIN 81 MG TABLET EC PO SCH (21:50)
[2017-06-15] MEDS: SIMVASTATIN 5 MG TABLET PO SCH (21:51)
[2017-06-15] MEDS: NORTRIPTYLINE 25 MG CAPSULE PO SCH (21:52)
[2017-06-15 22:26] VITALS: BP 92/62
[2017-06-16 03:26] VITALS: BP 114/77
[2017-06-16] MEDS: CEFTRIAXONE PMX 1GM/50ML 50 ML IV SCH ×2 (05:39→19:14)
[2017-06-16] MEDS: HEPARIN 5,000 UNITS/ML, 1ML SQ SCH ×3 (05:44→23:50)
[2017-06-16 05:46] LABS: HEMATOCRIT 34.3 % (34.6-47.8); HEMOGLOBIN 11.1 g/dL (11.7-16.4); WHITE BLOOD COUNT 11.2 x10^3/uL (3.4-10)
[2017-06-16 05:59] LABS: BLOOD UREA NITROGEN 26 mg/dL (7-18)
[2017-06-16 08:00] VITALS: BP 114/77
[2017-06-16] MEDS ORDERED: FUROSEMIDE 20 MG TABLET PO SCH (09:00)
[2017-06-16] MEDS: FLUTICASONE NASAL SPRAY 16GM NAS SCH (09:31)
[2017-06-16] MEDS: MAGNESIUM OXIDE 400 MG TABLET PO SCH ×2 (09:32→21:14)
[2017-06-16] MEDS: GABAPENTIN 300 MG CAPSULE PO SCH (09:32)
[2017-06-16] MEDS: POTASSIUM CHLORIDE 10 MEQ TABLET.ER PO SCH (09:32)
[2017-06-16] MEDS: CLOPIDOGREL 75 MG TABLET PO SCH (09:32)
[2017-06-16] MEDS: CYANOCOBALAMIN 1,000 MCG TABLET PO SCH (09:32)
[2017-06-16] MEDS: CALCIUM CARBONATE 500 MG TAB.CHEW PO SCH (09:33)
[2017-06-16] MEDS: LEVOTHYROXINE 25 MCG TABLET PO SCH (09:33)
[2017-06-16] MEDS: SODIUM CHLORIDE FLUSH 10ML SYR IVF SCH ×2 (09:33→21:16)
[2017-06-16] MEDS: OMEPRAZOLE 20 MG CAPSULE.DR PO SCH (09:33)
[2017-06-16] MEDS: SODIUM CHLORIDE 0.9% 1,000 ML IV SCH ×2 (09:34→23:50)
[2017-06-16] MEDS: INSULIN ASPART 100 UNITS/ML, PEN SQ-INSULIN SCH ×4 (09:35→21:11)
[2017-06-16] MEDS: AZITHROMYCIN 500 MG in SODIUM CHLORIDE 0.9% 250 ML IV SCH (09:38)
[2017-06-16 13:33] VITALS: BP 107/73
[2017-06-16 20:00] VITALS: BP 131/74
[2017-06-16] MEDS: INSULIN DETEMIR 100 UNITS/ML, PEN SQ-INSULIN SCH (21:11)
[2017-06-16] MEDS: ASPIRIN 81 MG TABLET EC PO SCH (21:14)
[2017-06-16] MEDS: SIMVASTATIN 5 MG TABLET PO SCH (21:14)
[2017-06-16] MEDS: NORTRIPTYLINE 25 MG CAPSULE PO SCH (21:14)
[2017-06-16] MEDS: LATANOPROST OPHTH 0.005%, 2.5ML EACHEYE SCH (21:16)
[2017-06-17 01:26] VITALS: BP 102/67
[2017-06-17] MEDS ORDERED: BISACODYL 10 MG SUPP PR PRN (05:30)
[2017-06-17] MEDS: HEPARIN 5,000 UNITS/ML, 1ML SQ SCH ×3 (05:34→22:08)
[2017-06-17] MEDS: CEFTRIAXONE PMX 1GM/50ML 50 ML IV SCH ×2 (05:36→17:44)
[2017-06-17] MEDS: ONDANSETRON ODT 4 MG PO PRN ×2 (07:23→11:35)
[2017-06-17] MEDS: INSULIN ASPART 100 UNITS/ML, PEN SQ-INSULIN SCH ×4 (07:48→21:06)
[2017-06-17 07:56] VITALS: BP 126/87
[2017-06-17 09:54] LABS: IS PT STATUS REG ER OR PRE ER? NO
[2017-06-17] MEDS: MAGNESIUM OXIDE 400 MG TABLET PO SCH ×2 (11:20→19:52)
[2017-06-17] MEDS: GABAPENTIN 300 MG CAPSULE PO SCH (11:20)
[2017-06-17] MEDS: CALCIUM CARBONATE 500 MG TAB.CHEW PO SCH (11:20)
[2017-06-17] MEDS: OMEPRAZOLE 20 MG CAPSULE.DR PO SCH (11:21)
[2017-06-17] MEDS: FLUTICASONE NASAL SPRAY 16GM NAS SCH (11:21)
[2017-06-17] MEDS: LEVOTHYROXINE 25 MCG TABLET PO SCH (11:21)
[2017-06-17] MEDS: POTASSIUM CHLORIDE 10 MEQ TABLET.ER PO SCH (11:21)
[2017-06-17] MEDS: CYANOCOBALAMIN 1,000 MCG TABLET PO SCH (11:21)
[2017-06-17] MEDS: CLOPIDOGREL 75 MG TABLET PO SCH (11:21)
[2017-06-17] MEDS: AZITHROMYCIN 500 MG in SODIUM CHLORIDE 0.9% 250 ML IV SCH (11:22)
[2017-06-17] MEDS: SODIUM CHLORIDE FLUSH 10ML SYR IVF SCH ×2 (12:01→19:47)
[2017-06-17 12:50] VITALS: BP 91/60
[2017-06-17 17:20] VITALS: BP 113/78
[2017-06-17 18:56] VITALS: BP 101/73
[2017-06-17] MEDS: SIMVASTATIN 5 MG TABLET PO SCH (19:52)
[2017-06-17] MEDS: ASPIRIN 81 MG TABLET EC PO SCH (19:52)
[2017-06-17] MEDS: LATANOPROST OPHTH 0.005%, 2.5ML EACHEYE SCH (19:52)
[2017-06-17] MEDS: NORTRIPTYLINE 25 MG CAPSULE PO SCH (19:52)
[2017-06-17] MEDS: INSULIN DETEMIR 100 UNITS/ML, PEN SQ-INSULIN SCH (21:03)
[2017-06-18 02:48] VITALS: BP 119/83
[2017-06-18 05:08] LABS: BLOOD UREA NITROGEN 22 mg/dL (7-18)
[2017-06-18 05:11] LABS: HEMATOCRIT 33.3 % (34.6-47.8); HEMOGLOBIN 10.9 g/dL (11.7-16.4); WHITE BLOOD COUNT 7.9 x10^3/uL (3.4-10)
[2017-06-18] MEDS: CEFTRIAXONE PMX 1GM/50ML 50 ML IV SCH (06:03)
[2017-06-18] MEDS: HEPARIN 5,000 UNITS/ML, 1ML SQ SCH ×2 (06:03→14:20)
[2017-06-18 07:55] VITALS: BP 98/64
[2017-06-18] MEDS: INSULIN ASPART 100 UNITS/ML, PEN SQ-INSULIN SCH ×3 (08:00→17:09)
[2017-06-18] MEDS: MAGNESIUM OXIDE 400 MG TABLET PO SCH (08:01)
[2017-06-18] MEDS: LEVOTHYROXINE 25 MCG TABLET PO SCH (08:01)
[2017-06-18] MEDS: CLOPIDOGREL 75 MG TABLET PO SCH (08:01)
[2017-06-18] MEDS: GABAPENTIN 300 MG CAPSULE PO SCH (08:01)
[2017-06-18] MEDS: POTASSIUM CHLORIDE 10 MEQ TABLET.ER PO SCH (08:01)
[2017-06-18] MEDS: OMEPRAZOLE 20 MG CAPSULE.DR PO SCH (08:01)
[2017-06-18] MEDS: CALCIUM CARBONATE 500 MG TAB.CHEW PO SCH (08:02)
[2017-06-18] MEDS: CYANOCOBALAMIN 1,000 MCG TABLET PO SCH (08:02)
[2017-06-18] MEDS: FLUTICASONE NASAL SPRAY 16GM NAS SCH (08:17)
[2017-06-18] MEDS: SODIUM CHLORIDE FLUSH 10ML SYR IVF SCH (08:17)
[2017-06-18] MEDS ORDERED: AZITHROMYCIN 250 MG TABLET PO SCH (09:58)
[2017-06-18] MEDS ORDERED: SODIUM CHLORIDE 0.9% 500 ML IV SCH (10:00)
[2017-06-18] MEDS: AZITHROMYCIN 500 MG in SODIUM CHLORIDE 0.9% 250 ML IV SCH (10:26)
[2017-06-18 12:45] VITALS: BP 94/66
[2017-06-18] MEDS ORDERED: AZIT250T89 PO (13:12)
[2017-06-18] MEDS ORDERED: CEFD300C37 PO (13:12)
[2017-06-18] MEDS ORDERED: CEFDINIR 300 MG CAPSULE PO SCH (21:00)
== END 2017-06-18 17:52 | DRG 871 ==
LOC: ED 17:28 → EDIP 17:47 → 3NE 19:19
PROVIDERS: ADMIT Hospitalist; ATTEND Hospitalist
DX: A41.9 Sepsis, unspecified organism (principal); J15.9 Unspecified bacterial pneumonia; J96.01 Acute respiratory failure with hypoxia; N17.0 Acute kidney failure with tubular necrosis; E11.40 Type 2 diabetes mellitus with diabetic neuropathy, unspecified; I11.0 Hypertensive heart disease with heart failure; E11.65 Type 2 diabetes mellitus with hyperglycemia; I50.42 Chronic combined systolic (congestive) and diastolic (congestive) heart failure; I49.5 Sick sinus syndrome; I27.20 Pulmonary hypertension, unspecified; R65.20 Severe sepsis without septic shock; E66.01 Morbid (severe) obesity due to excess calories; E78.00 Pure hypercholesterolemia, unspecified; Z96.653 Presence of artificial knee joint, bilateral; D72.820 Lymphocytosis (symptomatic); E03.9 Hypothyroidism, unspecified; S81.812A Laceration without foreign body, left lower leg, initial encounter; X58.XXXA Exposure to other specified factors, initial encounter; Z79.4 Long term (current) use of insulin; Z82.49 Family history of ischemic heart disease and other diseases of the circulatory system; Z86.73 Personal history of transient ischemic attack (TIA), and cerebral infarction without residual deficits; Z83.3 Family history of diabetes mellitus; Z95.0 Presence of cardiac pacemaker; Z90.49 Acquired absence of other specified parts of digestive tract; Y93.89 Activity, other specified; Y92.89 Other specified places as the place of occurrence of the external cause; Y99.8 Other external cause status; Z68.35 Body mass index [BMI] 35.0-35.9, adult; Z88.2 Allergy status to sulfonamides; Z88.8 Allergy status to other drugs, medicaments and biological substances
CPT/HCPCS: 36415; 71010; 80048; 80053; 81003; 82010; 82803; 82962; 83605; 84145; 84484; 85025; 85610; 87040; 87400; 93005; 99291; J0456; J0696; J1644; J1815; Q0162; J7030; J7040; J7050

== ENCOUNTER 2017-07-15 10:50 | Emergency (ER) | payer MEDICARE, BC ==
[~2017-07-15] VITALS: Ht 167.6 cm; Wt 90.0 kg
[~2017-07-15 10:50] MED LIST changes: +AZIT250T89 PO; +FURO-92 PO; +NORT25CA3 PO; +SPIR25TA3 PO
[2017-07-15] MEDS ORDERED: ALPR0.25 PO (11:27)
[2017-07-15] MEDS ORDERED: OSEL75CA PO (11:27)
[2017-07-15 11:52] LABS: RAPID INFLUENZA A Negative (Negative); RAPID INFLUENZA B Negative (Negative)
[2017-07-15 11:57] LABS: BASOPHILS # (AUTO) 0.01 x10^3/uL (0-0.1); BASOPHILS % (AUTO) 0 % (0-1); EOSINOPHILS # (AUTO) 0.05 x10^3/uL (0-0.4); EOSINOPHILS % (AUTO) 1 % (1-7); LYMPHOCYTES # (AUTO) 1.17 x10^3/uL (1-3.4); LYMPHOCYTES % (AUTO) 18 % (22-44); MD NO; MEAN CORPUSCULAR HEMOGLOBIN 27.7 pg (27.0-34.8); MEAN CORPUSCULAR HGB CONC 32.9 g/dL (32.4-35.8); MEAN CORPUSCULAR VOLUME 84.1 fL (80-100); MEAN PLATELET VOLUME 9.3 fL (7.4-10.4); MONOCYTES # (AUTO) 1.15 x10^3/uL (0.2-0.8); MONOCYTES % (AUTO) 17 % (2-9); NEUTROPHILS # (AUTO) 4.28 x10^3/uL (1.8-6.8); NEUTROPHILS % (AUTO) 64 % (42-75); PLATELET COUNT 234 x10^3/uL (130-400); RED CELL DISTRIBUTION WIDTH 18.4 % (9.6-15.2)
[2017-07-15] MEDS ORDERED: SODIUM CHLORIDE FLUSH 10ML SYR IVF ONE (12:00)
[2017-07-15 12:08] LABS: ALANINE AMINOTRANSFERASE 18 U/L (12-78); ANION GAP 9 mmol/L (5-15); CALCIUM 9.2 mg/dL (8.5-10.1); CHLORIDE 95 mmol/L (98-107); CREATININE 1.77 mg/dL (0.55-1.02)
[2017-07-15 12:09] LABS: INTERNATIONAL NORMALIZED RATIO 1.05 (0.93-1.1); PROTHROMBIN TIME 10.9 Seconds (9.6-11.5)
[2017-07-15 12:12] LABS: ALKALINE PHOSPHATASE 112 U/L (45-117); BILIRUBIN,TOTAL 0.4 mg/dL (0.2-1.0); TOTAL PROTEIN 7.6 g/dL (6.4-8.2); TROPONIN I < 0.015 ng/mL (0.000-0.045)
[2017-07-15] MEDS ORDERED: SODIUM CHLORIDE 0.9% 1,000ML IVBOLUS ONE (12:30)
[2017-07-15 15:11] VITALS: BP 128/82
== END 2017-07-15 15:15 | disposition short-term general hospital (02) ==
LOC: ED 13:12
DX: R05 Cough (principal); R53.1 Weakness; R06.00 Dyspnea, unspecified; E11.65 Type 2 diabetes mellitus with hyperglycemia; E78.00 Pure hypercholesterolemia, unspecified; E03.9 Hypothyroidism, unspecified; I11.0 Hypertensive heart disease with heart failure; E11.40 Type 2 diabetes mellitus with diabetic neuropathy, unspecified; I50.9 Heart failure, unspecified; Z95.0 Presence of cardiac pacemaker; Z99.3 Dependence on wheelchair
CPT/HCPCS: 36415; 71045; 80053; 84484; 85025; 85610; 85730; 87400; 93005; 96360; 96361; 99285; J7030

== ENCOUNTER 2017-09-05 15:11 | Inpatient (IN) | payer MEDICARE, BC ==
[~2017-09-05] VITALS: Ht 167.6 cm; Wt 92.4 kg
[~2017-09-05 15:11] MED LIST changes: +OSEL75CA PO
[2017-09-05] MEDS ORDERED: SODIUM CHLORIDE FLUSH 10ML SYR IVF ONE (16:00)
[2017-09-05 16:15] LABS: BASOPHILS # (AUTO) 0.05 x10^3/uL (0-0.1); BASOPHILS % (AUTO) 0 % (0-1); EOSINOPHILS # (AUTO) 0.43 x10^3/uL (0-0.4); EOSINOPHILS % (AUTO) 4 % (1-7); LYMPHOCYTES # (AUTO) 1.34 x10^3/uL (1-3.4); LYMPHOCYTES % (AUTO) 13 % (22-44); MD NO; MEAN CORPUSCULAR HEMOGLOBIN 28.4 pg (27.0-34.8); MEAN CORPUSCULAR HGB CONC 32.7 g/dL (32.4-35.8); MEAN CORPUSCULAR VOLUME 86.7 fL (80-100); MEAN PLATELET VOLUME 9.8 fL (7.4-10.4); MONOCYTES % (AUTO) 8 % (2-9); NEUTROPHILS # (AUTO) 7.98 x10^3/uL (1.8-6.8); NEUTROPHILS % (AUTO) 75 % (42-75); PLATELET COUNT 259 x10^3/uL (130-400); RED BLOOD COUNT 4.59 x10^6/uL (3.82-5.3); RED CELL DISTRIBUTION WIDTH 16.7 % (9.6-15.2)
[2017-09-05] MEDS ORDERED: SIMV10TA3 PO (16:27)
[2017-09-05] MEDS ORDERED: INSU300I SC (16:27)
[2017-09-05] MEDS ORDERED: GABA-827 PO (16:27)
[2017-09-05] MEDS ORDERED: ASPI-515 PO (16:27)
[2017-09-05] MEDS ORDERED: CALC200T3 PO (16:27)
[2017-09-05] MEDS ORDERED: INSU100V8 SQ (16:27)
[2017-09-05] MEDS ORDERED: NITR100C6 PO (16:27)
[2017-09-05] MEDS ORDERED: SPIR25TA3 PO (16:27)
[2017-09-05] MEDS ORDERED: OMEP-110 PO (16:27)
[2017-09-05] MEDS ORDERED: ALPR0.25 PO (16:27)
[2017-09-05 16:28] LABS: ANION GAP 8 mmol/L (5-15); CALCIUM 8.8 mg/dL (8.5-10.1); CHLORIDE 99 mmol/L (98-107); CREATININE 1.54 mg/dL (0.55-1.02)
[2017-09-05 16:32] LABS: TROPONIN I < 0.015 ng/mL (0.000-0.045)
[2017-09-05] MEDS ORDERED: FUROSEMIDE 40 MG/4 ML ONE (17:38)
[2017-09-05] MEDS ORDERED: DEXTROSE 50%, 50ML SYRINGE IVPush PRN (18:00)
[2017-09-05] MEDS ORDERED: FUROSEMIDE 40 MG/4 ML IV ONE (18:00)
[2017-09-05] MEDS ORDERED: GLUCAGON 1 MG IM PRN (18:00)
[2017-09-05] MEDS ORDERED: DEXTROSE 4 GM TAB.CHEW PO PRN (18:00)
[2017-09-05] MEDS ORDERED: PHARMACY INSTRUCTION MC PRN ×2 (19:00→21:23)
[2017-09-05] MEDS: INSULIN GLARGINE 100 UNITS/ML, PEN SQ-INSULIN SCH ×2 (21:00→21:58)
[2017-09-05 21:11] VITALS: BP 117/81
[2017-09-05] MEDS: NORTRIPTYLINE 25 MG CAPSULE PO SCH (21:59)
[2017-09-05] MEDS: INSULIN LISPRO 100 UNITS/ML, PEN SQ-INSULIN SCH (21:59)
[2017-09-05] MEDS: GABAPENTIN 300 MG CAPSULE PO SCH (21:59)
[2017-09-05] MEDS: SIMVASTATIN 10 MG TABLET PO SCH (22:00)
[2017-09-05] MEDS: NITROFURANTOIN (MACROBID) 100 MG CAPSULE PO SCH (22:00)
[2017-09-05] MEDS: SODIUM CHLORIDE FLUSH 10ML SYR IVF SCH (22:01)
[2017-09-05] MEDS: LATANOPROST OPHTH 0.005%, 2.5ML EACHEYE SCH (23:47)
[2017-09-06 00:40] VITALS: BP_SYST 96; BP_SYST 98; BP_DIAS 66; BP_DIAS 67
[2017-09-06] MEDS: ACETAMINOPHEN 325 MG TABLET PO PRN (02:29)
[2017-09-06] MEDS: GABAPENTIN 300 MG CAPSULE PO SCH ×4 (06:12→20:26)
[2017-09-06 07:02] VITALS: BP 98/63
[2017-09-06] MEDS: INSULIN LISPRO 100 UNITS/ML, PEN SQ-INSULIN SCH ×4 (08:17→20:28)
[2017-09-06] MEDS: ASPIRIN 81 MG TABLET EC PO SCH (08:18)
[2017-09-06] MEDS: SPIRONOLACTONE 25 MG TABLET PO SCH (08:18)
[2017-09-06] MEDS: SODIUM CHLORIDE FLUSH 10ML SYR IVF SCH ×2 (08:18→20:25)
[2017-09-06] MEDS: CLOPIDOGREL 75 MG TABLET PO SCH (08:19)
[2017-09-06] MEDS: OMEPRAZOLE 20 MG CAPSULE.DR PO SCH (08:19)
[2017-09-06] MEDS: CALCIUM CARBONATE 500 MG TAB.CHEW PO SCH (08:19)
[2017-09-06] MEDS: POTASSIUM CHLORIDE 10 MEQ TABLET.ER PO SCH (08:19)
[2017-09-06] MEDS: LEVOTHYROXINE 25 MCG TABLET PO SCH (08:19)
[2017-09-06] MEDS: FUROSEMIDE 40 MG TABLET PO SCH (08:19)
[2017-09-06] MEDS: CYANOCOBALAMIN 1,000 MCG TABLET PO SCH (08:19)
[2017-09-06] MEDS: FLUTICASONE NASAL SPRAY 16GM NAS SCH (10:51)
[2017-09-06] MEDS: NITROFURANTOIN (MACROBID) 100 MG CAPSULE PO SCH ×2 (10:52→20:27)
[2017-09-06 14:52] VITALS: BP 118/81
[2017-09-06 18:50] VITALS: BP 102/70
[2017-09-06] MEDS: SIMVASTATIN 10 MG TABLET PO SCH (20:26)
[2017-09-06] MEDS: NORTRIPTYLINE 25 MG CAPSULE PO SCH (20:26)
[2017-09-06] MEDS: LATANOPROST OPHTH 0.005%, 2.5ML EACHEYE SCH (20:27)
[2017-09-06] MEDS: INSULIN GLARGINE 100 UNITS/ML, PEN SQ-INSULIN SCH (20:28)
[2017-09-07 01:14] VITALS: BP 106/72
[2017-09-07] MEDS: LEVOTHYROXINE 25 MCG TABLET PO SCH (05:57)
[2017-09-07] MEDS: GABAPENTIN 300 MG CAPSULE PO SCH ×4 (05:58→21:23)
[2017-09-07 07:39] VITALS: BP 108/74
[2017-09-07] MEDS: CLOPIDOGREL 75 MG TABLET PO SCH (08:46)
[2017-09-07] MEDS: ASPIRIN 81 MG TABLET EC PO SCH (08:46)
[2017-09-07] MEDS: CYANOCOBALAMIN 1,000 MCG TABLET PO SCH (08:46)
[2017-09-07] MEDS: POTASSIUM CHLORIDE 10 MEQ TABLET.ER PO SCH (08:46)
[2017-09-07] MEDS: FUROSEMIDE 40 MG TABLET PO SCH (08:46)
[2017-09-07] MEDS: SPIRONOLACTONE 25 MG TABLET PO SCH (08:46)
[2017-09-07] MEDS: OMEPRAZOLE 20 MG CAPSULE.DR PO SCH (08:46)
[2017-09-07] MEDS: NITROFURANTOIN (MACROBID) 100 MG CAPSULE PO SCH ×2 (08:46→21:00)
[2017-09-07] MEDS: CALCIUM CARBONATE 500 MG TAB.CHEW PO SCH (08:47)
[2017-09-07] MEDS: INSULIN LISPRO 100 UNITS/ML, PEN SQ-INSULIN SCH ×4 (08:47→21:25)
[2017-09-07] MEDS: FLUTICASONE NASAL SPRAY 16GM NAS SCH (08:47)
[2017-09-07] MEDS: SODIUM CHLORIDE FLUSH 10ML SYR IVF SCH ×2 (09:00→21:33)
[2017-09-07 15:44] VITALS: BP 109/76
[2017-09-07 19:14] VITALS: BP 95/65
[2017-09-07] MEDS: LATANOPROST OPHTH 0.005%, 2.5ML EACHEYE SCH (21:23)
[2017-09-07] MEDS: NORTRIPTYLINE 25 MG CAPSULE PO SCH (21:23)
[2017-09-07] MEDS: SIMVASTATIN 10 MG TABLET PO SCH (21:24)
[2017-09-07] MEDS: INSULIN GLARGINE 100 UNITS/ML, PEN SQ-INSULIN SCH (21:25)
[2017-09-08 01:16] VITALS: BP 97/68
[2017-09-08] MEDS: LEVOTHYROXINE 25 MCG TABLET PO SCH (05:30)
[2017-09-08] MEDS: GABAPENTIN 300 MG CAPSULE PO SCH ×4 (05:30→20:27)
[2017-09-08] MEDS: INSULIN LISPRO 100 UNITS/ML, PEN SQ-INSULIN SCH ×4 (07:00→20:24)
[2017-09-08 08:23] VITALS: BP 108/74
[2017-09-08] MEDS: NITROFURANTOIN (MACROBID) 100 MG CAPSULE PO SCH ×2 (09:00→20:27)
[2017-09-08] MEDS: CLOPIDOGREL 75 MG TABLET PO SCH (09:16)
[2017-09-08] MEDS: CALCIUM CARBONATE 500 MG TAB.CHEW PO SCH (09:16)
[2017-09-08] MEDS: POTASSIUM CHLORIDE 10 MEQ TABLET.ER PO SCH (09:16)
[2017-09-08] MEDS: FUROSEMIDE 40 MG TABLET PO SCH (09:16)
[2017-09-08] MEDS: OMEPRAZOLE 20 MG CAPSULE.DR PO SCH (09:16)
[2017-09-08] MEDS: ASPIRIN 81 MG TABLET EC PO SCH (09:17)
[2017-09-08] MEDS: SPIRONOLACTONE 25 MG TABLET PO SCH (09:17)
[2017-09-08] MEDS: CYANOCOBALAMIN 1,000 MCG TABLET PO SCH (09:17)
[2017-09-08] MEDS: SODIUM CHLORIDE FLUSH 10ML SYR IVF SCH ×2 (09:24→20:25)
[2017-09-08] MEDS: FLUTICASONE NASAL SPRAY 16GM NAS SCH (09:24)
[2017-09-08 13:05] VITALS: BP 107/74
[2017-09-08 19:15] VITALS: BP 131/66
[2017-09-08] MEDS: INSULIN GLARGINE 100 UNITS/ML, PEN SQ-INSULIN SCH (20:24)
[2017-09-08] MEDS: LATANOPROST OPHTH 0.005%, 2.5ML EACHEYE SCH (20:26)
[2017-09-08] MEDS: NORTRIPTYLINE 25 MG CAPSULE PO SCH (20:28)
[2017-09-08] MEDS: SIMVASTATIN 10 MG TABLET PO SCH (20:28)
[2017-09-09 01:18] VITALS: BP 126/62
[2017-09-09] MEDS: LEVOTHYROXINE 25 MCG TABLET PO SCH (05:51)
[2017-09-09] MEDS: GABAPENTIN 300 MG CAPSULE PO SCH ×4 (05:52→20:43)
[2017-09-09] MEDS: INSULIN LISPRO 100 UNITS/ML, PEN SQ-INSULIN SCH ×4 (07:00→20:42)
[2017-09-09] MEDS: POTASSIUM CHLORIDE 10 MEQ TABLET.ER PO SCH (08:25)
[2017-09-09] MEDS: NITROFURANTOIN (MACROBID) 100 MG CAPSULE PO SCH ×2 (08:25→20:43)
[2017-09-09] MEDS: SODIUM CHLORIDE FLUSH 10ML SYR IVF SCH ×2 (08:25→20:43)
[2017-09-09] MEDS: CLOPIDOGREL 75 MG TABLET PO SCH (08:25)
[2017-09-09] MEDS: FLUTICASONE NASAL SPRAY 16GM NAS SCH (08:26)
[2017-09-09] MEDS: SPIRONOLACTONE 25 MG TABLET PO SCH (08:27)
[2017-09-09] MEDS: FUROSEMIDE 40 MG TABLET PO SCH (08:27)
[2017-09-09] MEDS: OMEPRAZOLE 20 MG CAPSULE.DR PO SCH (08:28)
[2017-09-09] MEDS: CYANOCOBALAMIN 1,000 MCG TABLET PO SCH (08:28)
[2017-09-09] MEDS: CALCIUM CARBONATE 500 MG TAB.CHEW PO SCH (08:28)
[2017-09-09] MEDS: ASPIRIN 81 MG TABLET EC PO SCH (08:28)
[2017-09-09 09:15] VITALS: BP 103/70
[2017-09-09] MEDS: ACETAMINOPHEN 325 MG TABLET PO PRN (11:33)
[2017-09-09 14:25] VITALS: BP 112/75
[2017-09-09] MEDS: INSULIN GLARGINE 100 UNITS/ML, PEN SQ-INSULIN SCH (20:42)
[2017-09-09] MEDS: LATANOPROST OPHTH 0.005%, 2.5ML EACHEYE SCH (20:42)
[2017-09-09] MEDS: NORTRIPTYLINE 25 MG CAPSULE PO SCH (20:43)
[2017-09-09] MEDS: SIMVASTATIN 10 MG TABLET PO SCH (20:43)
[2017-09-09 21:44] VITALS: BP 109/72
[2017-09-10 02:12] VITALS: BP 112/78
[2017-09-10] MEDS: GABAPENTIN 300 MG CAPSULE PO SCH ×3 (06:08→17:41)
[2017-09-10] MEDS: LEVOTHYROXINE 25 MCG TABLET PO SCH (06:09)
[2017-09-10] MEDS: INSULIN LISPRO 100 UNITS/ML, PEN SQ-INSULIN SCH ×3 (07:00→16:00)
[2017-09-10 07:56] VITALS: BP 117/78
[2017-09-10] MEDS ORDERED: REGADENOSON 0.4 MG/5 ML SYRINGE ONE (08:28)
[2017-09-10] MEDS: SODIUM CHLORIDE FLUSH 10ML SYR IVF SCH (08:45)
[2017-09-10] MEDS: OMEPRAZOLE 20 MG CAPSULE.DR PO SCH (08:46)
[2017-09-10] MEDS: NITROFURANTOIN (MACROBID) 100 MG CAPSULE PO SCH (08:46)
[2017-09-10] MEDS: CLOPIDOGREL 75 MG TABLET PO SCH (08:47)
[2017-09-10] MEDS: FUROSEMIDE 40 MG TABLET PO SCH (08:47)
[2017-09-10] MEDS: CALCIUM CARBONATE 500 MG TAB.CHEW PO SCH (08:47)
[2017-09-10] MEDS: POTASSIUM CHLORIDE 10 MEQ TABLET.ER PO SCH (08:48)
[2017-09-10] MEDS: SPIRONOLACTONE 25 MG TABLET PO SCH (08:48)
[2017-09-10] MEDS: CYANOCOBALAMIN 1,000 MCG TABLET PO SCH (08:49)
[2017-09-10] MEDS: ASPIRIN 81 MG TABLET EC PO SCH (08:49)
[2017-09-10] MEDS: FLUTICASONE NASAL SPRAY 16GM NAS SCH (08:54)
[2017-09-10] MEDS: ACETAMINOPHEN 325 MG TABLET PO PRN (11:31)
[2017-09-10 13:57] VITALS: BP 94/60
[2017-09-10] MEDS ORDERED: SODIUM CHLORIDE 0.9% 1,000ML IVBOLUS ONE (14:00)
[2017-09-10 14:45] LABS: CREATININE 1.47 mg/dL (0.55-1.02)
[2017-09-10 14:49] LABS: TROPONIN I < 0.015 ng/mL (0.000-0.045)
[2017-09-10 16:30] VITALS: BP 99/68
== END 2017-09-10 18:30 | DRG 291 ==
LOC: ED 16:00 → EDIP 17:17 → OBSVTOIN 17:17 → INTOOBSV 17:17 → 3NE 18:28
PROVIDERS: ADMIT Internal Medicine; ATTEND Internal Medicine
DX: I13.0 Hypertensive heart and chronic kidney disease with heart failure and stage 1 through stage 4 chronic kidney disease, or unspecified chronic kidney disease (principal); J96.01 Acute respiratory failure with hypoxia; R53.2 Functional quadriplegia; E11.22 Type 2 diabetes mellitus with diabetic chronic kidney disease; E11.42 Type 2 diabetes mellitus with diabetic polyneuropathy; I49.5 Sick sinus syndrome; I50.33 Acute on chronic diastolic (congestive) heart failure; N39.0 Urinary tract infection, site not specified; E11.65 Type 2 diabetes mellitus with hyperglycemia; E66.9 Obesity, unspecified; E78.5 Hyperlipidemia, unspecified; E78.00 Pure hypercholesterolemia, unspecified; N18.3 Chronic kidney disease, stage 3 (moderate); I27.21 Secondary pulmonary arterial hypertension; Z96.653 Presence of artificial knee joint, bilateral; E03.9 Hypothyroidism, unspecified; R29.6 Repeated falls; Z74.01 Bed confinement status; Z79.4 Long term (current) use of insulin; Z86.73 Personal history of transient ischemic attack (TIA), and cerebral infarction without residual deficits; Z95.0 Presence of cardiac pacemaker; Z90.49 Acquired absence of other specified parts of digestive tract; Z68.32 Body mass index [BMI] 32.0-32.9, adult; Z88.2 Allergy status to sulfonamides; Z88.1 Allergy status to other antibiotic agents
CPT/HCPCS: 36415; 71045; 80048; 82040; 82565; 82962; 83880; 84484; 85018; 85025; 93005; 96372; 99285; J2785; G0378; J1815; J7030

== ENCOUNTER → 2017-11-14 | Outpatient (CLI) | payer MEDICARE, BC ==
[~2017-11-14] MED LIST changes: +CALC200T3 PO; +DULA0.75 SQ-INSULIN; +FURO20TA3 PO; +GABA-827 PO; +INSU100I28 SQ-INSULIN; +INSU100V8 SQ; +INSU300I SC; +METO-282 PO; +METO25TA91 PO; +NITR100C6 PO; +NUT.237L21 PO
[2017-11-14 11:05] LABS: BASOPHILS # (AUTO) 0.07 x10^3/uL (0-0.1); BASOPHILS % (AUTO) 1 % (0-1); EOSINOPHILS # (AUTO) 0.18 x10^3/uL (0-0.4); EOSINOPHILS % (AUTO) 2 % (1-7); LYMPHOCYTES # (AUTO) 1.39 x10^3/uL (1-3.4); LYMPHOCYTES % (AUTO) 12 % (22-44); MD NO; MEAN CORPUSCULAR HEMOGLOBIN 26.7 pg (27.0-34.8); MEAN CORPUSCULAR HGB CONC 31.7 g/dL (32.4-35.8); MEAN CORPUSCULAR VOLUME 84.2 fL (80-100); MEAN PLATELET VOLUME 9.1 fL (7.4-10.4); MONOCYTES # (AUTO) 0.72 x10^3/uL (0.2-0.8); MONOCYTES % (AUTO) 6 % (2-9); NEUTROPHILS # (AUTO) 9.32 x10^3/uL (1.8-6.8); NEUTROPHILS % (AUTO) 80 % (42-75); PLATELET COUNT 373 x10^3/uL (130-400); RED BLOOD COUNT 4.68 x10^6/uL (3.82-5.3)
[2017-11-14 11:10] LABS: INTERNATIONAL NORMALIZED RATIO 1.17 (0.93-1.1); PROTHROMBIN TIME 12.1 Seconds (9.6-11.5)
[2017-11-14 11:15] LABS: ALBUMIN 3.2 g/dL (3.4-5.0); ANION GAP 10 mmol/L (5-15); CALCIUM 8.9 mg/dL (8.5-10.1); CHLORIDE 100 mmol/L (98-107)
[2017-11-14 11:20] LABS: ALANINE AMINOTRANSFERASE 18 U/L (12-78); ALKALINE PHOSPHATASE 103 U/L (45-117); BILIRUBIN,TOTAL 0.9 mg/dL (0.2-1.0); CREATININE 1.28 mg/dL (0.55-1.02); TOTAL PROTEIN 7.6 g/dL (6.4-8.2)
== END ==
LOC: STAR 09:58
PROVIDERS: ATTEND Internal Medicine Cardiovascular Disease
DX: Z01.818 Encounter for other preprocedural examination (principal); Z95.0 Presence of cardiac pacemaker
CPT/HCPCS: 36415; 71046; 80053; 85025; 85610; 85730

== ENCOUNTER 2017-11-19 10:04 | Day surgery (SDC) | payer MEDICARE, BC ==
[~2017-11-19] VITALS: Ht 167.6 cm; Wt 84.1 kg
[2017-11-19 11:59] VITALS: BP 114/78
== END 2017-11-19 16:15 | disposition home or self-care (01) ==
LOC: CACL 10:04
PROVIDERS: ATTEND Internal Medicine Cardiovascular Disease
DX: I42.9 Cardiomyopathy, unspecified (principal); I35.0 Nonrheumatic aortic (valve) stenosis; I05.2 Rheumatic mitral stenosis with insufficiency; E11.22 Type 2 diabetes mellitus with diabetic chronic kidney disease; N18.9 Chronic kidney disease, unspecified; E03.9 Hypothyroidism, unspecified; E11.40 Type 2 diabetes mellitus with diabetic neuropathy, unspecified; I12.9 Hypertensive chronic kidney disease with stage 1 through stage 4 chronic kidney disease, or unspecified chronic kidney disease; E78.00 Pure hypercholesterolemia, unspecified; K21.9 Gastro-esophageal reflux disease without esophagitis; Z79.82 Long term (current) use of aspirin; Z79.4 Long term (current) use of insulin; Z88.2 Allergy status to sulfonamides; Z88.8 Allergy status to other drugs, medicaments and biological substances; Z87.440 Personal history of urinary (tract) infections
CPT/HCPCS: 82962; 93312; 93321; 93325

== ENCOUNTER 2017-11-22 10:58 | Inpatient (IN) | payer MEDICARE, BC ==
[~2017-11-22] VITALS: Ht 167.6 cm; Wt 90.4 kg
[2017-11-22] MEDS ORDERED: SODIUM CHLORIDE 0.9% 1,000ML IVBOLUS ONE (11:30)
[2017-11-22] MEDS ORDERED: VANCOMYCIN PER PHARMACY MC ONE (11:30)
[2017-11-22] MEDS ORDERED: DULA0.75 INJ (11:32)
[2017-11-22] MEDS ORDERED: ASPI-650 PO (11:33)
[2017-11-22] MEDS ORDERED: CLOP75TA PO (11:42)
[2017-11-22] MEDS ORDERED: [UNRECOGNIZED DRUG - CODE] PO (11:45)
[2017-11-22] MEDS ORDERED: SPIR25TA3 PO (11:46)
[2017-11-22] MEDS ORDERED: CALC300T5 PO (11:47)
[2017-11-22] MEDS ORDERED: GABA-827 PO (11:48)
[2017-11-22] MEDS ORDERED: LATA2.5D2 EACHEYE (11:50)
[2017-11-22] MEDS ORDERED: PHARMACOKINETIC CONSULTATION MC ONE (12:00)
[2017-11-22] MEDS ORDERED: VANCOMYCIN 1,400 MG in SODIUM CHLORIDE 0.9% 250 ML IV ONE (12:00)
[2017-11-22] MEDS ORDERED: PIPERACILLIN/TAZO/PMX 3.375GM 50 ML IV ONE (12:00)
[2017-11-22 12:03] LABS: BASOPHILS # (AUTO) 0.04 x10^3/uL (0-0.1); BASOPHILS % (AUTO) 0 % (0-1); EOSINOPHILS # (AUTO) 0.15 x10^3/uL (0-0.4); EOSINOPHILS % (AUTO) 2 % (1-7); LYMPHOCYTES # (AUTO) 1.39 x10^3/uL (1-3.4); LYMPHOCYTES % (AUTO) 15 % (22-44); MD NO; MEAN CORPUSCULAR HEMOGLOBIN 26.3 pg (27.0-34.8); MEAN CORPUSCULAR HGB CONC 31.4 g/dL (32.4-35.8); MEAN CORPUSCULAR VOLUME 83.6 fL (80-100); MEAN PLATELET VOLUME 8.8 fL (7.4-10.4); MONOCYTES # (AUTO) 0.79 x10^3/uL (0.2-0.8); MONOCYTES % (AUTO) 8 % (2-9); NEUTROPHILS # (AUTO) 7.17 x10^3/uL (1.8-6.8); NEUTROPHILS % (AUTO) 75 % (42-75); PLATELET COUNT 332 x10^3/uL (130-400); RED BLOOD COUNT 4.14 x10^6/uL (3.82-5.3); RED CELL DISTRIBUTION WIDTH 16.8 % (9.6-15.2)
[2017-11-22 12:37] LABS: INTERNATIONAL NORMALIZED RATIO 1.26 (0.93-1.1); PROTHROMBIN TIME 12.9 Seconds (9.6-11.5)
[2017-11-22 12:41] LABS: ALANINE AMINOTRANSFERASE 17 U/L (12-78); ALBUMIN 2.6 g/dL (3.4-5.0); ANION GAP 7 mmol/L (5-15); CALCIUM 8.6 mg/dL (8.5-10.1); CHLORIDE 105 mmol/L (98-107); CREATININE 1.35 mg/dL (0.55-1.02)
[2017-11-22 12:45] LABS: ALKALINE PHOSPHATASE 88 U/L (45-117); BILIRUBIN,TOTAL 0.7 mg/dL (0.2-1.0); TOTAL PROTEIN 6.4 g/dL (6.4-8.2); TROPONIN I < 0.015 ng/mL (0.000-0.045)
[2017-11-22 13:45] LABS: MICROSCOPIC INDICATED
[2017-11-22 13:46] LABS: CULTURE INDICATED? YES
[2017-11-22] MEDS ORDERED: PHARMACY INSTRUCTION MC SCH (14:30)
[2017-11-22] MEDS ORDERED: DULAGLUTIDE SQ-INSULIN SCH (14:30)
[2017-11-22] MEDS ORDERED: PIPERACILLIN/TAZO/PMX 3.375GM 50 ML IV SCH (14:30)
[2017-11-22] MEDS ORDERED: ACETAMINOPHEN 325 MG TABLET PO PRN (15:00)
[2017-11-22] MEDS ORDERED: hydrALAzine 20 MG/ML, 1ML IVPush PRN (15:00)
[2017-11-22] MEDS ORDERED: morphine SULFATE 10 MG/ML, 1ML IVPush PRN (15:00)
[2017-11-22] MEDS ORDERED: TRULICITY MC SCH (15:00)
[2017-11-22 15:20] VITALS: BP 106/63
[2017-11-22 15:32] LABS: FREE T4 (FREE THYROXINE) 1.12 ng/dL (0.76-1.46); THYROID STIMULATING HORMONE 1.37 mIU/L (0.358-3.740)
[2017-11-22] MEDS ORDERED: DULA0.75 SQ-INSULIN (15:52)
[2017-11-22] MEDS: GABAPENTIN 300 MG CAPSULE PO SCH ×2 (16:49→20:29)
[2017-11-22] MEDS: AZITHROMYCIN 500 MG in SODIUM CHLORIDE 0.9% 250 ML IV SCH (16:49)
[2017-11-22] MEDS: ENOXAPARIN 30 MG/0.3 ML SQ SCH (16:54)
[2017-11-22] MEDS: INSULIN LISPRO 100 UNITS/ML, PEN SQ-INSULIN SCH ×2 (16:54→20:30)
[2017-11-22 19:30] VITALS: BP 81/61
[2017-11-22 20:01] VITALS: BP_SYST 81; BP_SYST 85; BP_DIAS 65
[2017-11-22] MEDS: NORTRIPTYLINE 25 MG CAPSULE PO SCH (20:29)
[2017-11-22] MEDS: SIMVASTATIN 10 MG TABLET PO SCH (20:29)
[2017-11-22 20:52] VITALS: BP 87/66
[2017-11-22] MEDS: INSULIN GLARGINE 100 UNITS/ML, PEN SQ-INSULIN SCH (21:31)
[2017-11-22] MEDS: LATANOPROST OPHTH 0.005%, 2.5ML EACHEYE SCH (21:31)
[2017-11-22 21:33] VITALS: BP 89/64
[2017-11-22] MEDS ORDERED: SODIUM CHLORIDE 0.9%, 500ML IVBOLUS ONE (23:00)
[2017-11-23 01:07] VITALS: BP 81/61
[2017-11-23 01:12] VITALS: BP 91/68
[2017-11-23 04:39] LABS: MEAN CORPUSCULAR HEMOGLOBIN 25.8 pg (27.0-34.8); MEAN CORPUSCULAR HGB CONC 30.4 g/dL (32.4-35.8); MEAN CORPUSCULAR VOLUME 84.9 fL (80-100); MEAN PLATELET VOLUME 8.8 fL (7.4-10.4); PLATELET COUNT 329 x10^3/uL (130-400); RED BLOOD COUNT 4.31 x10^6/uL (3.82-5.3); RED CELL DISTRIBUTION WIDTH 16.8 % (9.6-15.2)
[2017-11-23 04:48] LABS: ALBUMIN 2.6 g/dL (3.4-5.0); ANION GAP 8 mmol/L (5-15); CHLORIDE 109 mmol/L (98-107)
[2017-11-23 04:51] LABS: ALANINE AMINOTRANSFERASE 42 U/L (12-78); ALKALINE PHOSPHATASE 92 U/L (45-117); BILIRUBIN,TOTAL 0.7 mg/dL (0.2-1.0); CREATININE 1.41 mg/dL (0.55-1.02); TOTAL PROTEIN 6.2 g/dL (6.4-8.2)
[2017-11-23 05:05] LABS: BASOPHILS # (AUTO) 0.13 x10^3/uL (0-0.1); BASOPHILS % (AUTO) 1 % (0-1); EOSINOPHILS % (AUTO) 2 % (1-7); LYMPHOCYTES # (AUTO) 1.74 x10^3/uL (1-3.4); LYMPHOCYTES % (AUTO) 14 % (22-44); MD SCAN; MONOCYTES # (AUTO) 0.99 x10^3/uL (0.2-0.8); MONOCYTES % (AUTO) 8 % (2-9); NEUTROPHILS # (AUTO) 9.55 x10^3/uL (1.8-6.8); NEUTROPHILS % (AUTO) 76 % (42-75)
[2017-11-23] MEDS: GABAPENTIN 300 MG CAPSULE PO SCH ×4 (05:11→20:19)
[2017-11-23] MEDS: LEVOTHYROXINE 25 MCG TABLET PO SCH (05:11)
[2017-11-23 05:15] VITALS: BP 84/65
[2017-11-23 06:04] LABS: HEMOGLOBIN A1C 8.8 % (4.2-6.3)
[2017-11-23] MEDS: INSULIN LISPRO 100 UNITS/ML, PEN SQ-INSULIN SCH ×4 (07:00→20:21)
[2017-11-23 07:09] VITALS: BP 81/64
[2017-11-23] MEDS ORDERED: ENOXAPARIN 40 MG/0.4 ML SQ SCH (09:00)
[2017-11-23] MEDS ORDERED: FUROSEMIDE 20 MG TABLET PO SCH (09:00)
[2017-11-23] MEDS ORDERED: SPIRONOLACTONE 25 MG TABLET PO SCH (09:00)
[2017-11-23] MEDS ORDERED: ENOXAPARIN 30 MG/0.3 ML SQ SCH (09:00)
[2017-11-23] MEDS ORDERED: NUT TX GLUC INTOLER LAC FR SOY PO SCH (09:00)
[2017-11-23] MEDS ORDERED: [UNRECOGNIZED DRUG - OTHER] PO SCH (09:00)
[2017-11-23] MEDS: CALCIUM CARBONATE 500 MG TAB.CHEW PO SCH (09:18)
[2017-11-23] MEDS: CYANOCOBALAMIN 1,000 MCG TABLET PO SCH (09:18)
[2017-11-23] MEDS: CLOPIDOGREL 75 MG TABLET PO SCH (09:19)
[2017-11-23] MEDS: METOPROLOL SUCCINATE 25 MG TAB.ER.24H PO SCH (09:19)
[2017-11-23] MEDS: OMEPRAZOLE 20 MG CAPSULE.DR PO SCH (09:19)
[2017-11-23] MEDS: ASPIRIN 81 MG TABLET EC PO SCH (09:19)
[2017-11-23] MEDS: POTASSIUM CHLORIDE 10 MEQ TABLET.ER PO SCH (09:20)
[2017-11-23] MEDS: FLUTICASONE NASAL SPRAY 16GM NAS SCH (11:18)
[2017-11-23] MEDS ORDERED: MORPHINE SULFATE 4 MG/ML, 1ML IVPush PRN (12:00)
[2017-11-23 13:10] VITALS: BP 87/63
[2017-11-23] MEDS: AZITHROMYCIN 500 MG in SODIUM CHLORIDE 0.9% 250 ML IV SCH (16:02)
[2017-11-23] MEDS: ENOXAPARIN 30 MG/0.3 ML SQ SCH (16:05)
[2017-11-23] MEDS: ONDANSETRON 2MG/ML, 2ML IVPush PRN (17:25)
[2017-11-23] MEDS: ALBUMIN HUMAN 25% 100 ML IV SCH (17:38)
[2017-11-23 18:42] VITALS: BP 88/60
[2017-11-23] MEDS ORDERED: SODIUM CHLORIDE 0.9% 500 ML IV ONE (20:00)
[2017-11-23] MEDS: LATANOPROST OPHTH 0.005%, 2.5ML EACHEYE SCH (20:18)
[2017-11-23] MEDS: SODIUM CHLORIDE 0.9% 1,000 ML IV SCH (20:18)
[2017-11-23] MEDS: INSULIN GLARGINE 100 UNITS/ML, PEN SQ-INSULIN SCH (20:20)
[2017-11-23] MEDS: SIMVASTATIN 10 MG TABLET PO SCH (20:28)
[2017-11-23] MEDS: NORTRIPTYLINE 25 MG CAPSULE PO SCH (20:28)
[2017-11-24 01:43] VITALS: BP 78/57
[2017-11-24] MEDS: LEVOTHYROXINE 25 MCG TABLET PO SCH (05:21)
[2017-11-24] MEDS: GABAPENTIN 300 MG CAPSULE PO SCH ×4 (05:21→20:14)
[2017-11-24 05:27] LABS: BASOPHILS # (AUTO) 0.07 x10^3/uL (0-0.1); BASOPHILS % (AUTO) 1 % (0-1); EOSINOPHILS # (AUTO) 0.08 x10^3/uL (0-0.4); EOSINOPHILS % (AUTO) 1 % (1-7); LYMPHOCYTES # (AUTO) 1.85 x10^3/uL (1-3.4); LYMPHOCYTES % (AUTO) 16 % (22-44); MD NO; MEAN CORPUSCULAR HEMOGLOBIN 26.5 pg (27.0-34.8); MEAN CORPUSCULAR HGB CONC 31.2 g/dL (32.4-35.8); MEAN CORPUSCULAR VOLUME 84.9 fL (80-100); MEAN PLATELET VOLUME 8.9 fL (7.4-10.4); MONOCYTES # (AUTO) 1.21 x10^3/uL (0.2-0.8); MONOCYTES % (AUTO) 10 % (2-9); NEUTROPHILS # (AUTO) 8.48 x10^3/uL (1.8-6.8); NEUTROPHILS % (AUTO) 73 % (42-75); PLATELET COUNT 287 x10^3/uL (130-400); RED BLOOD COUNT 4.14 x10^6/uL (3.82-5.3); RED CELL DISTRIBUTION WIDTH 17.2 % (9.6-15.2)
[2017-11-24 05:38] LABS: CHLORIDE 108 mmol/L (98-107)
[2017-11-24 05:46] LABS: ALANINE AMINOTRANSFERASE 355 U/L (12-78); ALBUMIN 2.9 g/dL (3.4-5.0); ALKALINE PHOSPHATASE 129 U/L (45-117); ANION GAP 9 mmol/L (5-15); BILIRUBIN,TOTAL 0.7 mg/dL (0.2-1.0); CALCIUM 8.7 mg/dL (8.5-10.1); CREATININE 1.77 mg/dL (0.55-1.02); TOTAL PROTEIN 6.4 g/dL (6.4-8.2)
[2017-11-24] MEDS: INSULIN LISPRO 100 UNITS/ML, PEN SQ-INSULIN SCH ×4 (07:00→20:15)
[2017-11-24 08:40] VITALS: BP 72/59
[2017-11-24] MEDS: SPIRONOLACTONE 25 MG TABLET PO SCH (08:43)
[2017-11-24] MEDS: FUROSEMIDE 20 MG TABLET PO SCH (08:44)
[2017-11-24] MEDS: OMEPRAZOLE 20 MG CAPSULE.DR PO SCH (08:56)
[2017-11-24] MEDS: POTASSIUM CHLORIDE 10 MEQ TABLET.ER PO SCH (08:57)
[2017-11-24] MEDS: CYANOCOBALAMIN 1,000 MCG TABLET PO SCH (08:58)
[2017-11-24] MEDS: ASPIRIN 81 MG TABLET EC PO SCH (08:59)
[2017-11-24] MEDS: CALCIUM CARBONATE 500 MG TAB.CHEW PO SCH (08:59)
[2017-11-24] MEDS: FLUTICASONE NASAL SPRAY 16GM NAS SCH (09:00)
[2017-11-24] MEDS: ALBUMIN HUMAN 25% 100 ML IV SCH (09:00)
[2017-11-24] MEDS: METOPROLOL SUCCINATE 25 MG TAB.ER.24H PO SCH (09:00)
[2017-11-24] MEDS: CLOPIDOGREL 75 MG TABLET PO SCH (09:00)
[2017-11-24 13:55] VITALS: BP 89/66
[2017-11-24] MEDS: SODIUM CHLORIDE 0.9% 1,000 ML IV SCH (15:30)
[2017-11-24] MEDS: ENOXAPARIN 30 MG/0.3 ML SQ SCH (16:15)
[2017-11-24] MEDS: AZITHROMYCIN 500 MG in SODIUM CHLORIDE 0.9% 250 ML IV SCH (16:15)
[2017-11-24] MEDS: ONDANSETRON 2MG/ML, 2ML IVPush PRN (17:04)
[2017-11-24] MEDS ORDERED: PHARMACY INSTRUCTION MC SCH (17:30)
[2017-11-24] MEDS: PIPERACILLIN/TAZO 2.25 GM in SODIUM CHLORIDE 0.9% 50 ML IV SCH ×2 (18:42→23:31)
[2017-11-24 18:56] VITALS: BP 97/62
[2017-11-24] MEDS: SIMVASTATIN 10 MG TABLET PO SCH (20:14)
[2017-11-24] MEDS: NORTRIPTYLINE 25 MG CAPSULE PO SCH (20:14)
[2017-11-24] MEDS: LATANOPROST OPHTH 0.005%, 2.5ML EACHEYE SCH (20:15)
[2017-11-24] MEDS: INSULIN GLARGINE 100 UNITS/ML, PEN SQ-INSULIN SCH (20:16)
[2017-11-25 01:38] VITALS: BP 96/53
[2017-11-25 05:11] LABS: BASOPHILS # (AUTO) 0.05 x10^3/uL (0-0.1); BASOPHILS % (AUTO) 1 % (0-1); EOSINOPHILS # (AUTO) 0.37 x10^3/uL (0-0.4); EOSINOPHILS % (AUTO) 4 % (1-7); LYMPHOCYTES # (AUTO) 1.41 x10^3/uL (1-3.4); LYMPHOCYTES % (AUTO) 14 % (22-44); MD NO; MEAN CORPUSCULAR HEMOGLOBIN 26.5 pg (27.0-34.8); MEAN CORPUSCULAR HGB CONC 31.3 g/dL (32.4-35.8); MEAN CORPUSCULAR VOLUME 84.9 fL (80-100); MEAN PLATELET VOLUME 9.1 fL (7.4-10.4); MONOCYTES % (AUTO) 11 % (2-9); NEUTROPHILS % (AUTO) 72 % (42-75); PLATELET COUNT 262 x10^3/uL (130-400); RED BLOOD COUNT 3.96 x10^6/uL (3.82-5.3); RED CELL DISTRIBUTION WIDTH 17.5 % (9.6-15.2)
[2017-11-25] MEDS: PIPERACILLIN/TAZO 2.25 GM in SODIUM CHLORIDE 0.9% 50 ML IV SCH ×4 (05:19→22:48)
[2017-11-25 05:20] LABS: CHLORIDE 109 mmol/L (98-107)
[2017-11-25] MEDS: LEVOTHYROXINE 25 MCG TABLET PO SCH (05:20)
[2017-11-25] MEDS: GABAPENTIN 300 MG CAPSULE PO SCH ×4 (05:20→20:34)
[2017-11-25 05:26] LABS: ANION GAP 9 mmol/L (5-15); CALCIUM 8.7 mg/dL (8.5-10.1); CREATININE 1.62 mg/dL (0.55-1.02)
[2017-11-25 05:27] LABS: ALANINE AMINOTRANSFERASE 372 U/L (12-78); ALBUMIN 3.1 g/dL (3.4-5.0); ALKALINE PHOSPHATASE 123 U/L (45-117); BILIRUBIN,TOTAL 0.8 mg/dL (0.2-1.0)
[2017-11-25] MEDS: INSULIN LISPRO 100 UNITS/ML, PEN SQ-INSULIN SCH ×4 (07:00→20:33)
[2017-11-25 07:06] VITALS: BP 92/61
[2017-11-25] MEDS: SPIRONOLACTONE 25 MG TABLET PO SCH (08:59)
[2017-11-25] MEDS: FUROSEMIDE 20 MG TABLET PO SCH (08:59)
[2017-11-25] MEDS: METOPROLOL SUCCINATE 25 MG TAB.ER.24H PO SCH (09:00)
[2017-11-25] MEDS: FLUTICASONE NASAL SPRAY 16GM NAS SCH (09:00)
[2017-11-25] MEDS: ALBUMIN HUMAN 25% 100 ML IV SCH (09:13)
[2017-11-25] MEDS: CALCIUM CARBONATE 500 MG TAB.CHEW PO SCH (09:13)
[2017-11-25] MEDS: CLOPIDOGREL 75 MG TABLET PO SCH (09:14)
[2017-11-25] MEDS: ASPIRIN 81 MG TABLET EC PO SCH (09:14)
[2017-11-25] MEDS: CYANOCOBALAMIN 1,000 MCG TABLET PO SCH (09:14)
[2017-11-25] MEDS: OMEPRAZOLE 20 MG CAPSULE.DR PO SCH (09:15)
[2017-11-25] MEDS: POTASSIUM CHLORIDE 10 MEQ TABLET.ER PO SCH (09:15)
[2017-11-25] MEDS: SODIUM CHLORIDE 0.9% 1,000 ML IV SCH (12:35)
[2017-11-25 16:09] VITALS: BP 87/66
[2017-11-25] MEDS: ENOXAPARIN 30 MG/0.3 ML SQ SCH (16:30)
[2017-11-25 18:45] VITALS: BP 90/70
[2017-11-25] MEDS: LATANOPROST OPHTH 0.005%, 2.5ML EACHEYE SCH (20:34)
[2017-11-25] MEDS: NORTRIPTYLINE 25 MG CAPSULE PO SCH (20:34)
[2017-11-25] MEDS: INSULIN GLARGINE 100 UNITS/ML, PEN SQ-INSULIN SCH (20:34)
[2017-11-25] MEDS: SIMVASTATIN 10 MG TABLET PO SCH (20:35)
[2017-11-26 01:03] VITALS: BP 107/76
[2017-11-26] MEDS: LEVOTHYROXINE 25 MCG TABLET PO SCH (05:34)
[2017-11-26] MEDS: PIPERACILLIN/TAZO 2.25 GM in SODIUM CHLORIDE 0.9% 50 ML IV SCH ×4 (05:34→23:29)
[2017-11-26] MEDS: GABAPENTIN 300 MG CAPSULE PO SCH ×4 (05:34→20:45)
[2017-11-26] MEDS: SODIUM CHLORIDE 0.9% 1,000 ML IV SCH (05:41)
[2017-11-26 05:43] LABS: BASOPHILS # (AUTO) 0.04 x10^3/uL (0-0.1); BASOPHILS % (AUTO) 0 % (0-1); EOSINOPHILS # (AUTO) 0.35 x10^3/uL (0-0.4); EOSINOPHILS % (AUTO) 4 % (1-7); LYMPHOCYTES # (AUTO) 1.15 x10^3/uL (1-3.4); LYMPHOCYTES % (AUTO) 11 % (22-44); MD NO; MEAN CORPUSCULAR HGB CONC 31.8 g/dL (32.4-35.8); MEAN CORPUSCULAR VOLUME 85.1 fL (80-100); MEAN PLATELET VOLUME 8.5 fL (7.4-10.4); MONOCYTES # (AUTO) 0.99 x10^3/uL (0.2-0.8); MONOCYTES % (AUTO) 10 % (2-9); NEUTROPHILS % (AUTO) 75 % (42-75); PLATELET COUNT 256 x10^3/uL (130-400); RED BLOOD COUNT 3.72 x10^6/uL (3.82-5.3); RED CELL DISTRIBUTION WIDTH 16.9 % (9.6-15.2)
[2017-11-26 05:54] LABS: ANION GAP 7 mmol/L (5-15); CALCIUM 8.8 mg/dL (8.5-10.1); CHLORIDE 108 mmol/L (98-107)
[2017-11-26 05:56] LABS: CREATININE 1.58 mg/dL (0.55-1.02)
[2017-11-26] MEDS: INSULIN LISPRO 100 UNITS/ML, PEN SQ-INSULIN SCH ×4 (07:00→20:45)
[2017-11-26 07:11] VITALS: BP 95/71
[2017-11-26] MEDS: SPIRONOLACTONE 25 MG TABLET PO SCH (08:00)
[2017-11-26] MEDS: FUROSEMIDE 20 MG TABLET PO SCH (08:01)
[2017-11-26] MEDS: METOPROLOL SUCCINATE 25 MG TAB.ER.24H PO SCH (08:01)
[2017-11-26] MEDS: POTASSIUM CHLORIDE 10 MEQ TABLET.ER PO SCH (08:09)
[2017-11-26] MEDS: ALBUMIN HUMAN 25% 100 ML IV SCH (08:10)
[2017-11-26] MEDS: CLOPIDOGREL 75 MG TABLET PO SCH (08:10)
[2017-11-26] MEDS: OMEPRAZOLE 20 MG CAPSULE.DR PO SCH (08:10)
[2017-11-26] MEDS: CALCIUM CARBONATE 500 MG TAB.CHEW PO SCH (08:10)
[2017-11-26] MEDS: CYANOCOBALAMIN 1,000 MCG TABLET PO SCH (08:10)
[2017-11-26] MEDS: ASPIRIN 81 MG TABLET EC PO SCH (08:10)
[2017-11-26] MEDS: FLUTICASONE NASAL SPRAY 16GM NAS SCH (08:13)
[2017-11-26 15:04] VITALS: BP 100/73
[2017-11-26] MEDS: ENOXAPARIN 30 MG/0.3 ML SQ SCH (17:03)
[2017-11-26 19:17] VITALS: BP 95/65
[2017-11-26] MEDS: INSULIN GLARGINE 100 UNITS/ML, PEN SQ-INSULIN SCH (20:45)
[2017-11-26] MEDS: LATANOPROST OPHTH 0.005%, 2.5ML EACHEYE SCH (20:45)
[2017-11-26] MEDS: NORTRIPTYLINE 25 MG CAPSULE PO SCH (20:45)
[2017-11-26] MEDS: SIMVASTATIN 10 MG TABLET PO SCH (20:47)
[2017-11-27 01:03] VITALS: BP 121/88
[2017-11-27] MEDS: GABAPENTIN 300 MG CAPSULE PO SCH ×2 (05:55→11:00)
[2017-11-27] MEDS: PIPERACILLIN/TAZO 2.25 GM in SODIUM CHLORIDE 0.9% 50 ML IV SCH (05:55)
[2017-11-27] MEDS: LEVOTHYROXINE 25 MCG TABLET PO SCH (05:55)
[2017-11-27] MEDS: SODIUM CHLORIDE 0.9% 1,000 ML IV SCH (06:10)
[2017-11-27 06:55] VITALS: BP 90/71
[2017-11-27] MEDS: INSULIN LISPRO 100 UNITS/ML, PEN SQ-INSULIN SCH ×2 (07:00→11:00)
[2017-11-27] MEDS: FLUTICASONE NASAL SPRAY 16GM NAS SCH (09:00)
[2017-11-27] MEDS: METOPROLOL SUCCINATE 25 MG TAB.ER.24H PO SCH (09:00)
[2017-11-27] MEDS: SPIRONOLACTONE 25 MG TABLET PO SCH (09:00)
[2017-11-27] MEDS: CYANOCOBALAMIN 1,000 MCG TABLET PO SCH (09:00)
[2017-11-27] MEDS: POTASSIUM CHLORIDE 10 MEQ TABLET.ER PO SCH (09:00)
[2017-11-27] MEDS: FUROSEMIDE 20 MG TABLET PO SCH (09:00)
[2017-11-27] MEDS: CLOPIDOGREL 75 MG TABLET PO SCH (10:10)
[2017-11-27] MEDS: ASPIRIN 81 MG TABLET EC PO SCH (10:10)
[2017-11-27] MEDS: CALCIUM CARBONATE 500 MG TAB.CHEW PO SCH (10:10)
[2017-11-27] MEDS: ALBUMIN HUMAN 25% 100 ML IV SCH (10:11)
[2017-11-27] MEDS: OMEPRAZOLE 20 MG CAPSULE.DR PO SCH (10:12)
[2017-11-27] MEDS ORDERED: PIPERACILLIN/TAZO/PMX 3.375GM 50 ML IV SCH (11:30)
== END 2017-11-27 12:27 | DRG 871 ==
LOC: ED 11:54 → EDIP 13:09 → SUATTDRO 13:21 → 4WST 14:24
PROVIDERS: ADMIT Internal Medicine; ATTEND Internal Medicine
PROC: 0T9B70Z Drainage of Bladder with Drainage Device, Via Natural or Artificial Opening (ICD-10-PCS; principal; 2017-11-22)
PROC: 5A09357 Assistance with Respiratory Ventilation, Less than 24 Consecutive Hours, Continuous Positive Airway Pressure (ICD-10-PCS; 2017-11-23)
DX: A41.9 Sepsis, unspecified organism (principal); J18.9 Pneumonia, unspecified organism; E43 Unspecified severe protein-calorie malnutrition; R53.2 Functional quadriplegia; G93.40 Encephalopathy, unspecified; J96.00 Acute respiratory failure, unspecified whether with hypoxia or hypercapnia; N17.0 Acute kidney failure with tubular necrosis; N39.0 Urinary tract infection, site not specified; I50.22 Chronic systolic (congestive) heart failure; B96.89 Other specified bacterial agents as the cause of diseases classified elsewhere; E03.9 Hypothyroidism, unspecified; E11.40 Type 2 diabetes mellitus with diabetic neuropathy, unspecified; E78.5 Hyperlipidemia, unspecified; Z96.653 Presence of artificial knee joint, bilateral; Z68.32 Body mass index [BMI] 32.0-32.9, adult; I11.0 Hypertensive heart disease with heart failure; I25.10 Atherosclerotic heart disease of native coronary artery without angina pectoris; I34.0 Nonrheumatic mitral (valve) insufficiency; I35.0 Nonrheumatic aortic (valve) stenosis; K21.9 Gastro-esophageal reflux disease without esophagitis; Z66 Do not resuscitate; Z86.73 Personal history of transient ischemic attack (TIA), and cerebral infarction without residual deficits; Z90.49 Acquired absence of other specified parts of digestive tract; Z95.0 Presence of cardiac pacemaker; Z88.2 Allergy status to sulfonamides
CPT/HCPCS: 36415; 71045; 80048; 80053; 81001; 82962; 83036; 83605; 83735; 83880; 84100; 84145; 84439; 84443; 84484; 85025; 85610; 87040; 87077; 87086; 87186; 93005; 96361; 96365; 96366; J0456; J1650; J2405; J2543; J3370; P9047; J1815; J2270; J7030; J7040; J7050